=== PATIENT | male | born 1970 | race Caucasian/White ===

== ENCOUNTER → 2020-05-21 12:38 | Outpatient (CLI) | payer BC, SELFPAY | PROVIDERS: PCP Family Medicine; Visit Provider Family Medicine | DX: Z20.828 Contact with and (suspected) exposure to other viral communicable diseases (principal); U07.1 COVID-19 | CPT/HCPCS: U0003 ==

== ENCOUNTER 2020-05-25 14:41 | Inpatient (IN) | payer BC, SELFPAY ==
[2020-05-25] VITALS (11 sets, daily range): BP systolic 118–146; BP diastolic 79–89; PULSE 76–90; RESP 18–25; TEMP 36.8–37.1; O2SAT 92–98; BMI 24.4; BMI 27.1
--- NOTE | 2020-05-25 14:46 | ECG_ITS ---
APPROVED REPORT Exam: Resting ECG HR:75 bpm ECG Measurements Heart Rate 75 AXES TN 160 P 30 QRSd 90 QRS 72 QT 400 T 58 QTc 446 Conclusion Normal sinus rhythm RSR' or QR pattern in V1 suggests right ventricular conduction delay Septal infarct, age undetermined Abnormal ECG Electronically signed by : Foster Garcia, 05/26/2020 06:56:43
--- NOTE | 2020-05-25 14:54 | XR_ITS ---
PROCEDURE: XR CHEST PORTABLE CLINICAL HISTORY: soa COMPARISON: No exams were available for comparison FINDINGS: The cardiomediastinal silhouette and pulmonary vascularity are within normal limits. Consolidation is present in both lower lobes left greater than right consistent with bilateral lower lobe pneumonia. Upper lobes are clear. No obvious effusion. No acute bony abnormalities. IMPRESSION: Bilateral lower lobe pneumonia Dictated by: Ajay Loaiza MD 05/25/2020 15:32 Ajay Loaiza MD in [place] 05/25/2020 15:32
[2020-05-25 15:09] LABS: Basophils % 0.5 % (0.1-2.0); Eosinophils % 0.5 % (0.1-12.0); Hematocrit 44.8 % (42.0-52.0); Hemoglobin 14.6 g/dL (14.1-18.0); Lymphocytes # 1.2 K/mm3 (0.7-4.5); Lymphocytes % 22.9 % (10-50); Mean Corpuscular HGB Conc 32.6 g/dL (31.8-35.4); Mean Corpuscular Hemoglobin 27.5 pg (27.0-31.2); Mean Corpuscular Volume 84.4 fl (80-94); Mean Platelet Volume 8.6 fl (7.4-10.4); Monocytes # 0.2 K/mm3 (0.1-1.0); Monocytes % 4.6 % (1.7-9.3); Neutrophils # 3.8 K/mm3 (1.8-7.8); Neutrophils % 71.7 % (37.0-80.0); Platelet Count 197 K/mm3 (142-424); Red Blood Count 5.31 M/mm3 (4.60-6.20); Red Cell Distribution Width 13.4 % (11.5-17.5); White Blood Count 5.3 K/mm3 (4.8-10.8)
--- NOTE | 2020-05-25 15:09 | HMH.EDGENADL ---
ED Disposition Clinical Impression: Pneumonia due to COVID-19 virus Disposition: Admitted as Observation Condition on Discharge: Serious Referrals: Lenore Carlson APRN [Primary Care Provider] - - Critical Care Critical Care Time: No Attestation: On 05/25/20, the high probability of a clinically significant, sudden or life threatening deterioration of the following system(s) required my full and direct attention, intervention and personal management. The time I documented below is in addition to time spent performing reported procedures but includes the following listed in this critical care notation. Medical Decision Making - Singh Inquiry Pt receiving controlled substance: No Vital Signs: 05/25/20 14:42 05/25/20 15:00 Temperature 98.2 F 98.2 F Temperature Source Oral Oral Pulse Rate [Left Radial] 87 77 Respiratory Rate 20 22 Blood Pressure [Right Arm] 123/87 123/80 Blood Pressure Mean [Right Arm] 99 94 Blood Pressure Source [Right Arm] Automatic Cuff Automatic Cuff Blood Pressure Position [Right Arm] Sitting Sitting 02 Sat by Pulse Oximetry 94 L 95 Oxygen Delivery Method Room Air Room Air - Lab Data Lab Results 05/25/20 14:50: WBC 5.3, RBC 5.31, Hgb 14.6, Hct 44.8, MCV 84.4, MCH 27.5, MCHC 32.6, RDW 13.4, Plt Count 197, MPV 8.6, Neut % (Auto) 71.7, Lymph % (Auto) 22.9, [place] % (Auto) 4.6, Eos % (Auto) 0.5, Baso % (Auto) 0.5, Neut # (Auto) 3.8, Lymph # (Auto) 1.2, [place] # (Auto) 0.2, Eos # (Auto) 0.0, Baso # (Auto) 0.0 05/25/20 14:50: Sodium 138, Potassium 4.3, Chloride 101, Carbon Dioxide 27, Anion Gap 14.3, BUN 13, Creatinine 0.90, Estimated Creat Clear 113, Estimated GFR 89, Est GFR ( Amer) 108, Glucose 127 H, Calcium 8.8 05/25/20 14:50: Lactate 1.2 05/25/20 14:50: Troponin I < 0.01 05/25/20 14:50: Total Bilirubin 0.6, Direct Bilirubin 0.2, Conjugated Bilirubin 0.0, Indirect Bilirubin 0.4, Unconjugated Bilirubin 0.4, AST 74 H, ALT 80 H, Alkaline Phosphatase 118, C-Reactive Protein 72.1 H, Total Protein 8.0, Albumin 4.6 05/25/20 14:50: ESR 75 H Result diagrams: 05/25/20 14:50 05/25/20 14:50 Orders (Tests/Meds): ED MEDICATIONS Generic Name Dose Route Start Last Admin Trade Name Freq PRN Reason Stop Dose Admin Levofloxacin/Dextrose 750 mg in 150 mls @ 100 mls/hr 05/25/20 15:45 05/25/20 15:52 Levofloxacin 750mg/150ml Premix IV 06/08/20 15:44 100 mls/hr Q24H PRABHAKAR Administration Protocol Sodium Chloride 3 ml 05/25/20 15:21 Sodium Chloride 3% 15ml Neb IH 06/24/20 15:20 ONCE PRN INDUCE SPUTUM COLLECTION ORDERS Category Date Time Status Covid-19 IgG/IgM ([facility]) Stat Lab 05/25/20 14:50 Received Covid-19 Nasal PCR ([facility]) Routine Lab 05/25/20 15:41 Ordered Troponin I Q3H Lab 05/25/20 18:15 Ordered Troponin I Q3H Lab 05/25/20 21:15 Ordered Blood Culture Stat Micro 05/25/20 14:55 Received Sputum Culture & Gram Stain Stat Micro 05/25/20 15:21 Ordered - Radiology Data #1 Image(s): Chest Image Reviewed: Yes I reviewed the patient's radiology image Bilateral infiltrates lower lobes - ECG Data Tracing #1 EKG interpreted by Prince Franco MD: Rhythm: sinus Rate: 75 [place]: normal Ectopy: none Conduction: Incomplete right bundle branch block ST Segment Changes: none T Wave Changes: none Q Waves: Septal No evidence of acute ischemia or injury - Physician Consults Physician Consulted: Nasim Time: 16:00 Reason -: Admission Comment/Response: Agrees to admit the patient to the hospital. We discussed the patient's clinical information, including history, exam, laboratory and radiology results and ED course. Per hospital procedure, I will write temporary bridge inpatient orders on the patient. Specific orders requested by the admitting physician: Admit to Dr. Johnson General Adult HPI - General Chief complaint: Shortness of Breath/Dyspnea Stated complaint: SOA Time Seen by Provider: 05/25/20 15:34 Mode of Arrival: Ambulatory L
[2020-05-25 15:10] LABS: Chloride 101 mmol/L (98-107); Sodium 138 mmol/L (136-145)
[2020-05-25 15:11] LABS: Potassium 4.3 mmoL/L (3.5-5.1)
[2020-05-25 15:13] LABS: Blood Urea Nitrogen 13 mg/dl (9-20); Creatinine Clearance Estimated 113 mL/min (50-200); Estimated Glomerular Filt Rate 89 ml/min (>60); GFR (African American) 108 ML/MIN (>60); Lactic Acid 1.2 mmol/L (0.7-2.1)
[2020-05-25 15:14] LABS: Anion Gap 14.3 mEq/L (5-15); Calcium 8.8 mg/dl (8.4-10.2); Carbon Dioxide 27 mmol/L (22.0-30.0); Glucose 127 mg/dl (74-100)
[2020-05-25 15:50] LABS: Bilirubin,Unconjugated 0.4 mg/dL (0.0-1.1)
[2020-05-25 15:51] LABS: Alanine Aminotransferase 80 U/L (12-78); Albumin Level 4.6 g/dl (3.5-5.0); Alkaline Phosphatase 118 U/L (38-126); Aspartate Amino Transferase 74 U/L (17-59); Bilirubin,Direct 0.2 mg/dl (0.0-0.4); Bilirubin,Indirect 0.4 mg/dL (0.0-0.9); Bilirubin,Total 0.6 mg/dl (0.2-1.3)
[2020-05-25 15:56] LABS: C-Reactive Protein 72.1 mg/L (0-4)
[2020-05-25 16:05] LABS: Erythrocyte Sedimentation Rate 75 mm/hr (0-15)
[2020-05-25 16:06] LABS: Troponin I < 0.01 ng/ml (0.00-0.034)
--- NOTE | 2020-05-25 16:13 | PC.NURSE ---
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
--- NOTE | 2020-05-25 16:13 | PC.NURSE ---
Dr Rouse called and said he will see the patient tonight, but to admit him under [place] 1600
[2020-05-25 16:14] LABS: Coronavirus 19 IgG Antibody Negative (Negative); Coronavirus 19 IgM Antibody Negative (Negative)
--- NOTE | 2020-05-25 17:02 | PC.NURSE ---
LITA Campos at beside taking patient to the floor.
[2020-05-25 17:35] LABS: POC Glucose,Bedside 129 (70-110)
--- NOTE | 2020-05-25 18:12 | HMH.HP ---
*Admission Date: 05/25/20 *Chief complaint: SOA, COVID 19 positive *History of present illness: The patient is admitted with COVID 19 positivity and increasing shortness of breath, worse with exertion. Cough is minimally productive. The following is from [facility] ER narrative: The patient has COVID-19 and is complaining of shortness of breath. 1 week ago he says that he developed a chill and in retrospect he thinks that may have been his first symptom. The next day he was fine, and then on Thursday 5 days ago he began having body aches, severe headache, fevers, cough. He does not have loss of smell or taste. He was seen here 4 days ago and had a Covid test (nasal PCR) which has since returned as positive. The past 2 days he has developed shortness of breath with exertion. He denies shortness of breath at rest. His shortness of breath with exertion is worsening. He has not run a fever for about 4 days. He is taking [id number] medications without improvement. His has also tested positive for Covid. [facility] History Medical History: Reports:: Diabetes Mellitus Type 2 Denies:: Cancer, Diabetes Mellitus Type 1 *Have you ever received a pneumonia vaccine?: No *Have you received a flu vaccine this season?: No Other Medical History: Reports: Thyroid Disease Other Surgeries: Yes: Other (Rotator cuff repair right shoulder 2000) Amputation: No Fractures: No - *Social History Smoking Status: Never smoker Alcohol Intake: never Substance Use Type: denies use *Occupational Status:: employed Housing: house Household Members: spouse *Travel in the last 8 weeks: None Family Hx:: Cancer (Father), Other (3 sons 2 daughters) Review of Systems - Constitutional Reports fatigue, Reports fever(s), Reports lack of energy - Eyes Denies change in vision - ENT Denies hoarseness - *Cardiovascular Reports shortness of breath, Denies foot swelling - *Respiratory Reports chest congestion, Reports cough, Reports shortness of breath with activity, Denies excessive phlegm production, Denies coughing up blood - *Gastrointestinal Reports change in stools, Denies abdominal pain - *Genitourinary Denies difficulty urinating - *Neurologic Denies headache(s) Meds Home Medications Medication Instructions Recorded Confirmed Type Levothyroxine Sodium 150 mcg PO DAILY 02/12/18 05/25/20 History [Levothyroxine 150mcg (0.15mg) Tab] Loratadine [Allerclear] 10 mg PO DAILY 02/12/18 05/25/20 History Vilazodone HCl [Viibryd] 40 mg PO DAILY 02/12/18 05/25/20 History hydrOXYzine pamoate [Hydroxyzine 50 mg PO HS PRN 02/12/18 05/25/20 History Pamoate] metformin 500 mg tablet 500 mg PO BID 06/12/19 05/25/20 History Allergies Allergy/AdvReac Type Severity Reaction Status Date / Time No Known Allergies Allergy Verified 06/12/19 16:02 Exam Vital signs and Labs for Last 24 Hours: Temp Pulse Resp BP Pulse Ox 98.2 F 77 22 146/89 H 95 05/25/20 17:21 05/25/20 17:21 05/25/20 17:21 05/25/20 17:21 05/25/20 17:21 Laboratory Results - last 24 hr 05/25/20 14:50: WBC 5.3, RBC 5.31, Hgb 14.6, Hct 44.8, MCV 84.4, MCH 27.5, MCHC 32.6, RDW 13.4, Plt Count 197, MPV 8.6, Neut % (Auto) 71.7, Lymph % (Auto) 22.9, [place] % (Auto) 4.6, Eos % (Auto) 0.5, Baso % (Auto) 0.5, Neut # (Auto) 3.8, Lymph # (Auto) 1.2, [place] # (Auto) 0.2, Eos # (Auto) 0.0, Baso # (Auto) 0.0 05/25/20 14:50: Sodium 138, Potassium 4.3, Chloride 101, Carbon Dioxide 27, Anion Gap 14.3, BUN 13, Creatinine 0.90, Estimated Creat Clear 113, Estimated GFR 89, Est GFR ( Amer) 108, Glucose 127 H, Calcium 8.8 05/25/20 14:50: Lactate 1.2 05/25/20 14:50: Troponin I < 0.01 05/25/20 14:50: Total Bilirubin 0.6, Direct Bilirubin 0.2, Conjugated Bilirubin 0.0, Indirect Bilirubin 0.4, Unconjugated Bilirubin 0.4, AST 74 H, ALT 80 H, Alkaline Phosphatase 118, C-Reactive Protein 72.1 H, Total Protein 8.0, Albumin 4.6 05/25/20 14:50: ESR 75 H 05/25/20 14:50: SARS-CoV-2 IgG Ab (Rapid) Nega
[2020-05-25 20:11] LABS: POC Glucose,Bedside 173 (70-110)
--- NOTE | 2020-05-26 03:52 | PC.NURSE ---
Pt A&OX4 lungs diminished. O2 sat 94 on RA. pt voids per urinal. pt denies at pain. pt has rested quietly throughout shift. call light within reach.
[2020-05-26 04:00] VITALS: BP 138/85; PULSE 73; RESP 20; TEMP 36.9; O2SAT 95
[2020-05-26 05:33] LABS: POC Glucose,Bedside 175 (70-110)
[2020-05-26 05:43] VITALS: BMI 26.8
[2020-05-26 08:00] VITALS: BP 126/77; PULSE 82; RESP 20; TEMP 36.7; O2SAT 94; O2SAT 95
--- NOTE | 2020-05-26 10:26 | HMH.ACPN2 ---
Internal Medicine - PN: Subj *Date: 05/26/20 *Time: 10:50 Interval history: Patient states he feels a little better this morning, headache has improved but he still has a lot of cough. He has had some nausea. Exam Vital signs and Labs for Last 24 Hours: Temp Pulse Resp BP Pulse Ox 98.1 F 82 20 126/77 95 05/26/20 08:00 05/26/20 08:00 05/26/20 08:00 05/26/20 08:00 05/26/20 08:00 Laboratory Results - last 24 hr 05/25/20 14:50: WBC 5.3, RBC 5.31, Hgb 14.6, Hct 44.8, MCV 84.4, MCH 27.5, MCHC 32.6, RDW 13.4, Plt Count 197, MPV 8.6, Neut % (Auto) 71.7, Lymph % (Auto) 22.9, [place] % (Auto) 4.6, Eos % (Auto) 0.5, Baso % (Auto) 0.5, Neut # (Auto) 3.8, Lymph # (Auto) 1.2, [place] # (Auto) 0.2, Eos # (Auto) 0.0, Baso # (Auto) 0.0 05/25/20 14:50: Sodium 138, Potassium 4.3, Chloride 101, Carbon Dioxide 27, Anion Gap 14.3, BUN 13, Creatinine 0.90, Estimated Creat Clear 113, Estimated GFR 89, Est GFR ( Amer) 108, Glucose 127 H, Calcium 8.8 05/25/20 14:50: Lactate 1.2 05/25/20 14:50: Troponin I < 0.01 05/25/20 14:50: Total Bilirubin 0.6, Direct Bilirubin 0.2, Conjugated Bilirubin 0.0, Indirect Bilirubin 0.4, Unconjugated Bilirubin 0.4, AST 74 H, ALT 80 H, Alkaline Phosphatase 118, C-Reactive Protein 72.1 H, Total Protein 8.0, Albumin 4.6 05/25/20 14:50: ESR 75 H 05/25/20 14:50: SARS-CoV-2 IgG Ab (Rapid) Negative, SARS-CoV-2 IgM Ab (Rapid) Negative 05/25/20 17:27: POC Glucose 129 H 05/25/20 19:41: POC Glucose 173 H 05/26/20 05:21: POC Glucose 175 H Vital Signs - 24 hr 05/25/20 14:42 05/25/20 15:00 05/25/20 15:30 Temperature 98.2 F 98.2 F Pulse Rate Pulse Rate [Left Radial] 87 77 90 Respiratory Rate 20 22 24 Blood Pressure Blood Pressure [Right Arm] 123/87 123/80 128/81 02 Sat by Pulse Oximetry 94 L 95 98 05/25/20 16:20 05/25/20 16:30 05/25/20 17:00 Temperature Pulse Rate Pulse Rate [Left Radial] 78 82 80 Respiratory Rate 19 25 H Blood Pressure Blood Pressure [Right Arm] 129/83 124/79 131/84 02 Sat by Pulse Oximetry 97 97 97 05/25/20 17:06 05/25/20 17:21 05/25/20 18:15 Temperature 98.2 F 98.2 F Pulse Rate 80 Pulse Rate [Left Radial] 77 82 Respiratory Rate 18 22 Blood Pressure 131/84 Blood Pressure [Right Arm] 146/89 H 02 Sat by Pulse Oximetry 95 94 L 05/25/20 20:00 05/25/20 23:41 05/26/20 04:00 Temperature 98.7 F 98.5 F 98.4 F Pulse Rate Pulse Rate [Left Radial] 85 76 73 Respiratory Rate 20 20 20 Blood Pressure Blood Pressure [Right Arm] 118/79 128/84 138/85 02 Sat by Pulse Oximetry 95 95 95 05/26/20 08:00 Temperature 98.1 F Pulse Rate Pulse Rate [Left Radial] 82 Respiratory Rate 20 Blood Pressure Blood Pressure [Right Arm] 126/77 02 Sat by Pulse Oximetry 95 I & O for Last 24 hours: Intake & Output 05/23/20 05/24/20 05/25/20 05/26/20 23:59 23:59 23:59 23:59 Intake Total 420 / 420 1146 / 1146 Output Total 1500 / 1500 950 / 950 Balance -1080 / -1080 196 / 196 Weight 200 lb 198 lb Microbiology Reports for the Last 24 Hours: Microbiology 05/25/20 16:45 Nasopharyngeal Coronavirus COVID-19 PCR - Final - Constitutional no acute distress Comments: coughing - *Routine HEENT Exam Head: Present: normocephalic Eye: Present: EOMI ENT: Present: mucous membranes moist - *Routine Neck Exam Present: supple. Absent: lymphadenopathy - *Routine Respiratory Exam Comments: Good air movement, rare bibasilar crackles noted - *Routine Cardiovascular Exam Present: RRR - *Routine Abdominal Exam Present: soft, normoactive bowel sounds. Absent: tenderness - *Routine Extremities Exam Absent: cyanosis, clubbing, edema - *Routine Skin Exam Present: warm. Absent: rash - *Routine Neurological Exam Present: alert, oriented X3 Assessment and Plan (1) Pneumonia due to COVID-19 virus Status: Acute Category: Medical Code(s): U07.1 - COVID-19; J12.89 - Other viral pneumonia (2) Type 2 diabetes mellitus Status: Acu
--- NOTE | 2020-05-26 11:31 | HMH.PHAVTE ---
[facility] Pharmacy VTE Monitoring - Patient Demographics Admission date: 05/26/20 Report Date: 05/26/20 Time: 11:31 Allergies/Adverse Reactions: Patient Allergies No Known Allergies Allergy (Verified 06/12/19 16:02) Height: 1.83 m Weight: 89.811 kg Patient Problems: Current Active Problems Pneumonia due to COVID-19 virus (Acute) Type 2 diabetes mellitus (Acute) Hypothyroidism (acquired) (Acute) - VTE Risk Labs: VTE Related Lab Results Hgb 14.6 g/dL (14.1-18.0) 05/25/20 14:50 Hct 44.8 % (42.0-52.0) 05/25/20 14:50 Plt Count 197 K/mm3 (142-424) 05/25/20 14:50 BUN 13 mg/dl (9-20) 05/25/20 14:50 Creatinine 0.90 mg/dl (0.66-1.25) 05/25/20 14:50 Estimated Creat Clear 113 mL/min (50-200) 05/25/20 14:50 VTE Score: 3 VTE Risk Level: Low Risk - Prophylaxis Types of VTE Prophylaxis: TEDS Knee High (KIMBERLI HOSE ORDERED) Location of Applied Device: Not Applicable
[2020-05-26 11:39] LABS: POC Glucose,Bedside 137 (70-110)
[2020-05-26 16:00] VITALS: BP 137/86; PULSE 79; RESP 20; TEMP 36.8; O2SAT 94
--- NOTE | 2020-05-26 18:14 | PC.NURSE ---
Addendum entered by Amada Ash RN 05/26/20 18:33: Patients anxiety medication is secured in patients bin in med room pending packaging by pharmacy. Original Note: Patient is resting in bed, has been in bed all day, with the exception of ambulating to his toilet. Patient is alertx4. C/O cough and shortness of breath on exertion. Pupils are equal, sqe are strong and equal. Patient has had a diminished appetite today, blood glucose levels have been 137 and 168, 2 units of insulin required for 168, patient tolerated well. Metformin for patient was restarted today, patient has tolerated that as well. Patient has had good urine output. Skin is intact with no issues. Patient remains concerned about his who is at home with his three children who also has covid and is not feeling well. Patient has remained on and off of 2 liters of oxygen throughout the day, will put the oxygen on and off independently when his oxygen saturation is less than 92. On that note, the patients oxygen only dropped below 92 when he got up to his bedside commonde today. On ambulation he exhibited a dry hacking cough and difficulty catching his breath. Patient was given cough medication today per mar which he tolerated well and states helps with cough. Patient's belongings brought to him from home, anxiety medicine included, however, pharmacy will have to dose in the morning. Patient states he cannot take this medication in the evening. No issues or concerns with patient.
[2020-05-26 19:38] VITALS: BP 128/79; PULSE 88; RESP 20; TEMP 36.7; O2SAT 95
[2020-05-26 20:00] VITALS: O2SAT 95
[2020-05-26 23:39] VITALS: BP 127/80; PULSE 78; RESP 20; TEMP 36.7; O2SAT 95
[2020-05-27 04:00] VITALS: BP 137/87; PULSE 75; RESP 20; TEMP 36.6; O2SAT 94
--- NOTE | 2020-05-27 05:11 | PC.NURSE ---
Pt A&OX4 lungs diminished throughout. pt remains on RA O2 in low90s. pt c/o SOA on exertion but recovers quickly. pt ambulated to [facility] independently. pt received PRN cough syrup per SEP. pt has rested quietly this shift
[2020-05-27 05:56] VITALS: BMI 26.6
[2020-05-27 06:29] LABS: Alanine Aminotransferase 61 U/L (12-78); Albumin Level 4.1 g/dl (3.5-5.0); Albumin/Globulin Ratio 1.3 (1.1-1.8); Alkaline Phosphatase 122 U/L (38-126); Anion Gap 16.3 mEq/L (5-15); Aspartate Amino Transferase 54 U/L (17-59); Bilirubin,Total 0.4 mg/dl (0.2-1.3); Blood Urea Nitrogen 13 mg/dl (9-20); Calcium 8.8 mg/dl (8.4-10.2); Carbon Dioxide 24 mmol/L (22.0-30.0); Chloride 104 mmol/L (98-107); Creatinine Clearance Estimated 124 mL/min (50-200); Estimated Glomerular Filt Rate 89 ml/min (>60); GFR (African American) 108 ML/MIN (>60); Globulin 3.1 g/dL (1.3-3.2); Glucose 139 mg/dl (74-100); Potassium 4.3 mmoL/L (3.5-5.1); Sodium 140 mmol/L (136-145); Total Protein,Serum 7.2 g/dl (6.3-8.2)
[2020-05-27 08:00] VITALS: BP 146/87; PULSE 77; RESP 20; TEMP 36.6; O2SAT 95; O2SAT 96
--- NOTE | 2020-05-27 09:45 | HMH.ACPN2 ---
Internal Medicine - PN: Subj *Date: 05/27/20 *Time: 10:11 Interval history: Patient had a fairly sever coughing episode last night. O2 sat dropped briefly and he needed supplemental oxygen for a few minutes. He still has SOB with any exertion. Exam Vital signs and Labs for Last 24 Hours: Temp Pulse Resp BP Pulse Ox 97.8 F 77 20 146/87 H 96 05/27/20 08:00 05/27/20 08:00 05/27/20 08:00 05/27/20 08:00 05/27/20 08:00 Laboratory Results - last 24 hr 05/26/20 11:03: POC Glucose 137 H 05/27/20 06:01: Sodium 140, Potassium 4.3, Chloride 104, Carbon Dioxide 24, Anion Gap 16.3 H, BUN 13, Creatinine 0.90, Estimated Creat Clear 124, Estimated GFR 89, Est GFR ( Amer) 108, Glucose 139 H, Calcium 8.8, Total Bilirubin 0.4, AST 54 D, ALT 61, Alkaline Phosphatase 122, Total Protein 7.2, Albumin 4.1, Globulin 3.1, Albumin/Globulin Ratio 1.3 Vital Signs - 24 hr 05/26/20 16:00 05/26/20 19:38 05/26/20 20:00 Temperature 98.3 F 98.0 F Pulse Rate [Left Radial] 79 88 Respiratory Rate 20 20 Blood Pressure [Right Arm] 137/86 128/79 02 Sat by Pulse Oximetry 94 L 95 95 05/26/20 23:39 05/27/20 04:00 05/27/20 08:00 Temperature 98.0 F 97.9 F 97.8 F Pulse Rate [Left Radial] 78 75 77 Respiratory Rate 20 20 20 Blood Pressure [Right Arm] 127/80 137/87 146/87 H 02 Sat by Pulse Oximetry 95 94 L 96 I & O for Last 24 hours: Intake & Output 05/24/20 05/25/20 05/26/20 05/27/20 23:59 23:59 23:59 23:59 Intake Total 420 / 420 1866 / 1866 191 / 191 Output Total 1500 / 1500 4875 / 4875 550 / 550 Balance -1080 / -1080 -3009 / -3009 1365 / 1365 Weight 200 lb 198 lb 197 lb - Constitutional no acute distress - *Routine HEENT Exam Head: Present: normocephalic Eye: Present: EOMI ENT: Present: mucous membranes moist - *Routine Neck Exam Present: supple. Absent: lymphadenopathy - *Routine Respiratory Exam Comments: Good air movement, few bibasilar crackles, no wheezes - *Routine Cardiovascular Exam Present: RRR - *Routine Abdominal Exam Present: soft, normoactive bowel sounds. Absent: tenderness - *Routine Extremities Exam Absent: cyanosis, clubbing, edema - *Routine Skin Exam Present: warm. Absent: rash - *Routine Neurological Exam Present: alert, oriented X3 Assessment and Plan (1) Pneumonia due to COVID-19 virus Status: Acute Category: Medical Code(s): U07.1 - COVID-19; J12.89 - Other viral pneumonia (2) Type 2 diabetes mellitus Status: Acute Category: Medical Code(s): E11.9 - Type 2 diabetes mellitus without complications (3) Hypothyroidism (acquired) Status: Acute Category: Medical Code(s): E03.9 - Hypothyroidism, unspecified - Assessment and plan all Dx Assessment and Plan for all problems:: LFT's have improved, continue current treatment, repeat CXR later today.
--- NOTE | 2020-05-27 10:14 | XR_ITS ---
PROCEDURE: XR CHEST PORTABLE CLINICAL HISTORY: pneumonia, Covid 19 COMPARISON: Portable upright chest 05/25/2020 FINDINGS: This is a poor inspiratory effort. This results in crowding of vascular markings however I feel that there has been some interval improvement in the bilateral lower lobe pneumonic infiltrates since the previous exam 05/25/2020. The upper lung levy are remain essentially clear except for small opacity right suprahilar region which could represent minimal pneumonia versus atelectasis. Cardiac size is normal considering the poor inspiration. No pleural fluid. IMPRESSION: Interval partial clearing of bilateral lower lobe pneumonic infiltrates Dictated by: Dr. Steven Sheth MD 05/27/2020 10:51 Dr. Steven Sheth MD in [place] 05/27/2020 10:51
[2020-05-27 12:00] VITALS: BP 124/80; PULSE 78; RESP 20; TEMP 36.5; O2SAT 95
[2020-05-27 15:51] LABS: POC Glucose,Bedside 176 (70-110)
[2020-05-27 15:51] LABS: POC Glucose,Bedside 118 (70-110)
[2020-05-27 15:51] LABS: POC Glucose,Bedside 190 (70-110)
[2020-05-27 15:51] LABS: POC Glucose,Bedside 168 (70-110)
[2020-05-27 15:51] LABS: POC Glucose,Bedside 133 (70-110)
[2020-05-27 15:59] VITALS: BP 125/77; PULSE 77; RESP 20; TEMP 36.6; O2SAT 95
--- NOTE | 2020-05-27 17:33 | PC.NURSE ---
Patient is resting in bed. Neurologically patient is in better spirits than yesterday. Alert x 4. Cardiovascular lux patient has been hemodynamically stable. Pulmonary-patient has been on room air throughout the day and did not desat with ambulation like yesterday, does however grow very tired with ambulation. Dry cough still noted. PRN cough medication given per mar. Patients lung sounds continue to be diminished. GI-patient had a small formed bm, diarrhea seems to have resolved. Appetite has improved throughout the day. Patients blood glucose levels were 118 at 1100 and 176 at 1630. 2units given per mar. No nausea or vomiting. - excellent urine output today. Urine is pale yellow. Skin is intact, no issues. Room was cleaned by SRNA today. No issues or concerns voiced by patient. Will continue to monitor patient.
[2020-05-27 20:00] VITALS: BP 124/81; PULSE 76; RESP 19; TEMP 36.7; O2SAT 95
[2020-05-27 20:12] LABS: POC Glucose,Bedside 136 (70-110)
[2020-05-28] VITALS: BP 118/81; PULSE 69; RESP 19; TEMP 36.4; O2SAT 94
[2020-05-28 04:00] VITALS: BP 133/84; PULSE 65; RESP 19; TEMP 36.6; O2SAT 94
--- NOTE | 2020-05-28 04:27 | PC.NURSE ---
pt. has not c/o n/v/d, soa or dizziness this shift. C/o back pain, tx with tylenol and requested cough syrup for sleep; effectiveness reported.
[2020-05-28 05:43] LABS: Basophils % 0.4 % (0.1-2.0); Eosinophils % 0.1 % (0.1-12.0); Hematocrit 41.3 % (42.0-52.0); Hemoglobin 14.3 g/dL (14.1-18.0); Lymphocytes # 1.7 K/mm3 (0.7-4.5); Lymphocytes % 27.1 % (10-50); Mean Corpuscular HGB Conc 34.6 g/dL (31.8-35.4); Mean Corpuscular Hemoglobin 27.9 pg (27.0-31.2); Mean Corpuscular Volume 80.7 fl (80-94); Mean Platelet Volume 8.7 fl (7.4-10.4); Monocytes # 0.5 K/mm3 (0.1-1.0); Monocytes % 7.9 % (1.7-9.3); Neutrophils # 4.1 K/mm3 (1.8-7.8); Neutrophils % 64.5 % (37.0-80.0); Platelet Count 338 K/mm3 (142-424); Red Blood Count 5.12 M/mm3 (4.60-6.20); Red Cell Distribution Width 14.1 % (11.5-17.5); White Blood Count 6.4 K/mm3 (4.8-10.8)
[2020-05-28 05:49] LABS: Chloride 104 mmol/L (98-107); Potassium 4.3 mmoL/L (3.5-5.1); Sodium 137 mmol/L (136-145)
[2020-05-28 05:52] LABS: Alanine Aminotransferase 56 U/L (12-78); Albumin Level 3.9 g/dl (3.5-5.0); Albumin/Globulin Ratio 1.3 (1.1-1.8); Alkaline Phosphatase 94 U/L (38-126); Anion Gap 12.3 mEq/L (5-15); Aspartate Amino Transferase 47 U/L (17-59); Bilirubin,Total 0.5 mg/dl (0.2-1.3); Blood Urea Nitrogen 16 mg/dl (9-20); Carbon Dioxide 25 mmol/L (22.0-30.0); Creatinine Clearance Estimated 112 mL/min (50-200); Estimated Glomerular Filt Rate 79 ml/min (>60); GFR (African American) 96 ML/MIN (>60); Globulin 3.1 g/dL (1.3-3.2)
[2020-05-28 05:53] LABS: Calcium 8.7 mg/dl (8.4-10.2); Glucose 130 mg/dl (74-100)
[2020-05-28 06:00] VITALS: BMI 26.5
[2020-05-28 07:55] VITALS: BP 129/72; PULSE 72; RESP 18; TEMP 36.7; O2SAT 93
[2020-05-28 08:00] VITALS: O2SAT 94
--- NOTE | 2020-05-28 09:05 | HMH.ACPN2 ---
Internal Medicine - PN: Subj *Date: 05/28/20 *Time: 09:27 Interval history: Patient feels better today and is anxious to go home. Exam Vital signs and Labs for Last 24 Hours: Temp Pulse Resp BP Pulse Ox 98.0 F 72 18 129/72 94 L 05/28/20 07:55 05/28/20 07:55 05/28/20 07:55 05/28/20 07:55 05/28/20 08:00 Laboratory Results - last 24 hr 05/26/20 15:28: POC Glucose 168 H 05/26/20 20:04: POC Glucose 190 H 05/27/20 05:58: POC Glucose 133 H 05/27/20 10:46: POC Glucose 118 H 05/27/20 15:27: POC Glucose 176 H 05/27/20 19:58: POC Glucose 136 H 05/28/20 05:00: WBC 6.4, RBC 5.12, Hgb 14.3, Hct 41.3 L, MCV 80.7, MCH 27.9, MCHC 34.6, RDW 14.1, Plt Count 338 D, MPV 8.7, Neut % (Auto) 64.5, Lymph % (Auto) 27.1, [place] % (Auto) 7.9, Eos % (Auto) 0.1, Baso % (Auto) 0.4, Neut # (Auto) 4.1, Lymph # (Auto) 1.7, [place] # (Auto) 0.5, Eos # (Auto) 0.0, Baso # (Auto) 0.0 05/28/20 05:00: Sodium 137, Potassium 4.3, Chloride 104, Carbon Dioxide 25, Anion Gap 12.3, BUN 16, Creatinine 1.00, Estimated Creat Clear 112, Estimated GFR 79, Est GFR ( Amer) 96, Glucose 130 H, Calcium 8.7, Total Bilirubin 0.5, AST 47, ALT 56, Alkaline Phosphatase 94, Total Protein 7.0, Albumin 3.9, Globulin 3.1, Albumin/Globulin Ratio 1.3 Vital Signs - 24 hr 05/27/20 12:00 05/27/20 15:59 05/27/20 20:00 Temperature 97.7 F 97.8 F 98.0 F Pulse Rate [Left Radial] 78 77 76 Respiratory Rate 20 20 19 Blood Pressure [Right Arm] 124/80 125/77 124/81 02 Sat by Pulse Oximetry 95 95 95 05/28/20 00:00 05/28/20 04:00 05/28/20 07:55 Temperature 97.6 F 97.8 F 98.0 F Pulse Rate [Left Radial] 69 65 72 Respiratory Rate 19 19 18 Blood Pressure [Right Arm] 118/81 133/84 129/72 02 Sat by Pulse Oximetry 94 L 94 L 93 L 05/28/20 08:00 Temperature Pulse Rate [Left Radial] Respiratory Rate Blood Pressure [Right Arm] 02 Sat by Pulse Oximetry 94 L I & O for Last 24 hours: Intake & Output 05/25/20 05/26/20 05/27/20 05/28/20 23:59 23:59 23:59 23:59 Intake Total 420 / 420 1866 / 1866 3115 / 3115 120 / 120 Output Total 1500 / 1500 4875 / 4875 3985 / 4285 1500 / 1500 Balance -1080 / -1080 -3009 / -3009 -870 / -1170 -1380 / -1380 Weight 200 lb 198 lb 197 lb 196 lb 1 oz Microbiology Reports for the Last 24 Hours: Microbiology 05/25/20 14:55 Blood Blood Culture - Preliminary NO GROWTH AFTER 48 HOURS 05/25/20 14:55 Blood Blood Culture - Preliminary NO GROWTH AFTER 48 HOURS - Constitutional no acute distress - *Routine HEENT Exam Head: Present: normocephalic Eye: Present: EOMI ENT: Present: mucous membranes moist - *Routine Neck Exam Present: supple. Absent: lymphadenopathy - *Routine Respiratory Exam Present: CTA bilaterally - *Routine Cardiovascular Exam Present: RRR - *Routine Abdominal Exam Present: soft, normoactive bowel sounds. Absent: tenderness - *Routine Extremities Exam Absent: cyanosis, clubbing, edema - *Routine Skin Exam Present: warm. Absent: rash - *Routine Neurological Exam Present: alert, oriented X3 Assessment and Plan (1) Pneumonia due to COVID-19 virus Status: Acute Category: Medical Code(s): U07.1 - COVID-19; J12.89 - Other viral pneumonia (2) Type 2 diabetes mellitus Status: Acute Category: Medical Code(s): E11.9 - Type 2 diabetes mellitus without complications (3) Hypothyroidism (acquired) Status: Acute Category: Medical Code(s): E03.9 - Hypothyroidism, unspecified - Assessment and plan all Dx Assessment and Plan for all problems:: OK for discharge today on Levaquin, Dexamethasone, Zofran and Promethazine DM. Pt to isolate at home.
--- NOTE | 2020-05-28 13:09 | HMH.PULMCON ---
*Admission Date: 05/26/20 *Reason for consult:: COVID-19 pneumonia *History of present illness: Mr. Enamorado is a 50-year-old male with history of diabetes, diagnosed with Covid last Thursday he presented to the emergency room with problems of worsening cough and shortness of breath since to a point where he is feeling shortness of breath with his activities of daily living. Patient along with cough and portable also complains of fatigue fevers chills and muscle aches. He denies any abdominal symptoms. Patient also tested Covid and she predominately is having abdominal symptoms. Ben was called for further management [facility] History Medical History: Reports:: Diabetes Mellitus Type 2 Denies:: Cancer, Diabetes Mellitus Type 1 *Have you ever received a pneumonia vaccine?: No *Have you received a flu vaccine this season?: No Other Medical History: Reports: Thyroid Disease Other Surgeries: Yes: Other (Rotator cuff repair right shoulder 2000) Amputation: No Fractures: No - *Social History Smoking Status: Never smoker Alcohol Intake: never Substance Use Type: denies use *Occupational Status:: employed Housing: house Household Members: spouse *Travel in the last 8 weeks: None Family Hx:: Cancer (Father), Other (3 sons 2 daughters) ROS - Cons Reports body ache(s), Reports chills - Eyes Denies blind spots, Denies blurry vision - ENT Denies abnormal hearing - Card Reports shortness of breath, Reports shortness of breath with activity - Resp Respiratory: Yes chest congestion, Yes cough, Yes dyspnea, Yes dyspnea on exertion, Yes excessive phlegm production, No coughing up blood, No pain on inspiration, No pain with cough, Yes cough with sputum production - GI Gastrointestingal: Reports: system reviewed and no additional complaints, except as docu. Denies: abdominal pain - [place] Musculoskeletal: Reports system reviewed and no additional complaints, except as docu Meds Home Medications Medication Instructions Recorded Confirmed Type Loratadine [Allerclear] 10 mg PO DAILY 02/12/18 05/25/20 History Vilazodone HCl [Viibryd 40mg 40 mg PO DAILY 02/12/18 05/25/20 History Tablet] hydrOXYzine pamoate [Hydroxyzine 50 mg PO HSP PRN 02/12/18 05/26/20 History Pamoate] Atorvastatin Calcium [Lipitor 20mg 20 mg PO HS 05/26/20 05/26/20 History Tab] Levothyroxine Sodium 75 mcg PO DAILY 05/26/20 05/26/20 History [Levothyroxine 75mcg (0.075mg) Tab] Metformin HCl [Metformin HCl ER] 1,500 mg PO DAILY 05/26/20 05/26/20 History Promethazine/Dextromethorphan 5 - 10 ml PO Q6HP PRN #480 ml 05/28/20 Rx [Promethazine-Dm Solution] dexAMETHasone [Dexamethasone] 6 mg PO DAILY #3 tab 05/28/20 Rx levoFLOXacin [Levaquin 500mg 500 mg PO DAILY #7 tab 05/28/20 Rx tab] ondansetron HCL [Zofran 4mg Tab*] 4 mg PO TIDP PRN #20 tab 05/28/20 Rx Allergies Allergy/AdvReac Type Severity Reaction Status Date / Time No Known Allergies Allergy Verified 06/12/19 16:02 Exam - Constitutional Constitutional:: no acute distress, comfortable - HENWA Exam HENMT: normocephalic, atraumatic - Neck Exam Neck:: thyroid normal, no lymphadenopathy - Respiratory Exam Respiratory:: able to speak in complete sentences, no respiratory distress Comments: Left lower lobe crackles heard - Cardiovascular Exam Cardiac:: S1, S2 - GI Exam GI:: soft, no hepatosplenomegaly - Skin Exam Skin: warm, no rash - Neurological Exam Neurological: alert, awake, oriented X3 - Extremities Exam Extremities: no cyanosis, no clubbing, no edema - Psychiatric Exam Psychiatric: normal affect, appearance grossly normal Internal Medicine - CN: Reslt - Labs CBC & Chem 7: 05/28/20 05:00 05/28/20 05:00 Labs: Short CBC 05/28/20 Range/Units 05:00 WBC 6.4 (4.8-10.8) K/mm3 Hgb 14.3 (14.1-18.0) g/dL Hct 41.3 L (42.0-52.0) % Plt Count 338 D (142-424) K/mm3 [facility] 05/28/20 05:00 Sodium 137 Potass
--- NOTE | 2020-05-29 08:42 | HMH.DCSUM ---
General - General Admission date:: 05/25/20 Discharge date: 05/28/20 HPI HPI: The patient was admitted with COVID 19 positivity and increasing shortness of breath, worse with exertion. Cough was minimally productive. The following was from [facility] ER narrative: The patient has COVID-19 and is complaining of shortness of breath. 1 week ago he says that he developed a chill and in retrospect he thinks that may have been his first symptom. The next day he was fine, and then on Thursday 5 days ago he began having body aches, severe headache, fevers, cough. He does not have loss of smell or taste. He was seen here 4 days ago and had a Covid test (nasal PCR) which has since returned as positive. The past 2 days he has developed shortness of breath with exertion. He denies shortness of breath at rest. His shortness of breath with exertion is worsening. He has not run a fever for about 4 days. He is taking xrjm-lhn-yevagbl medications without improvement. His has also tested positive for Covid. Hospital Course Hospital Course: On admission patient was placed on the routine Covid protocol to include ascorbic acid, dexamethasone 6 mg p.o. daily, Lovenox 40 mg daily, Drisdol 50,000 units weekly, Pepcid 20 mg twice daily, Levaquin 750 mg IV daily, remdesivir 100 mg daily and zinc sulfate 220 mg daily. He was started on IV fluids at 100 an hour. He was placed on sliding scale insulin and started back on his home medicines. He felt better daily. Headache improved. He did have a persistent cough with some coughing spasms. He also did experience some nausea. With one coughing episode his O2 sats did drop briefly and he needed supplemental oxygen for a few minutes. He continued with shortness of breath with any exertion. Patient was also seen per Dr. Gallagher with plan to continue with Levaquin for total of 5 days, remdesivir and dexamethasone until discharge, incentive spirometry, and physical activity as tolerated. Follow-up with him in the clinic in 6 to 8 weeks to evaluate any clinical implications. Also to note liver function studies were slightly elevated with an SGOT of 74 and SGPT of 80 on admission. These did return to normal. By 05/28 he was feeling better and was anxious to go home. On this date his lungs sounded clear. White blood cell count was normal. Blood chemistries were normal. He was afebrile. Blood cultures were negative thus far. Thus he was discharged to home. Discharged home in stable and satisfactory condition. To continue with the Levaquin, dexamethasone, Zofran as needed and promethazine DM as needed. He was instructed to isolate at home. He was to Followup with Dr. Johnson 06/13/2020 Objective Vital signs: Temp Pulse Resp BP Pulse Ox 98.0 F 72 18 129/72 94 L 05/28/20 07:55 05/28/20 07:55 05/28/20 07:55 05/28/20 07:55 05/28/20 08:00 Narrative: Exam Vital signs and Labs for Last 24 Hours: Temp Pulse Resp BP Pulse Ox 98.0 F 72 18 129/72 94 L 05/28/20 07:55 05/28/20 07:55 05/28/20 07:55 05/28/20 07:55 05/28/20 08:00 Laboratory Results - last 24 hr 05/26/20 15:28: POC Glucose 168 H 05/26/20 20:04: POC Glucose 190 H 05/27/20 05:58: POC Glucose 133 H 05/27/20 10:46: POC Glucose 118 H 05/27/20 15:27: POC Glucose 176 H 05/27/20 19:58: POC Glucose 136 H 05/28/20 05:00: WBC 6.4, RBC 5.12, Hgb 14.3, Hct 41.3 L, MCV 80.7, MCH 27.9, MCHC 34.6, RDW 14.1, Plt Count 338 D, MPV 8.7, Neut % (Auto) 64.5, Lymph % (Auto) 27.1, Turner % (Auto) 7.9, Eos % (Auto) 0.1, Baso % (Auto) 0.4, Neut # (Auto) 4.1, Lymph # (Auto) 1.7, Turner # (Auto) 0.5, Eos # (Auto) 0.0, Baso # (Auto) 0.0 05/28/20 05:00: Sodium 137, Potassium 4.3, Chloride 104, Carbon Dioxide 25, Anion Gap 12.3, BUN 16, Creatinine 1.00, Estimated Creat Clear 112, Estimated GFR 79, Est GFR ( Amer) 96, Glucose 130 H, Calcium 8.7, Total Bilirubin 0.5, AST 47, ALT 56, Alkaline Phosphatase 94, Total Protein 7.0, Al
== END 2020-05-28 11:18 | disposition home or self-care (01) | DRG 177 ==
LOC: ER 16:12 → ICU 16:19
PROVIDERS: Admitting Provider Family Medicine; Emergency Provider Emergency Medicine; PCP Nurse Practitioner; Visit Provider Family Medicine
DX: U07.1 COVID-19 (principal); J12.89 Other viral pneumonia; Z79.84 Long term (current) use of oral hypoglycemic drugs; Z79.899 Other long term (current) drug therapy; E03.9 Hypothyroidism, unspecified; E11.9 Type 2 diabetes mellitus without complications
CPT/HCPCS: 71045; 80048; 80053; 80076; 82962; 83605; 84484; 85025; 85651; 86140; 86328; 87040; 93005; 96365; 99284; J1956; U0003

== ENCOUNTER → 2020-07-04 15:38 | Outpatient (CLI) | payer BC, SELFPAY ==
--- NOTE | 2020-07-04 15:50 | XR_ITS ---
PROCEDURE: XR CHEST 2V CLINICAL HISTORY: ELEVATED DIAPHRAGM COMPARISON: CR XR CHEST PORTABLE from 05/25/2020 CR XR CHEST PORTABLE from 05/27/2020 FINDINGS: The cardiomediastinal silhouette and pulmonary vascularity are within normal limits. The lungs are clear without infiltrates, suspicious nodules, or pleural effusions. Faint density is noted in the right lobe and may represent thickening major fissure. Previously noted pneumonia in the right lower lung zone has cleared. IMPRESSION: No acute finding. Minimal opacity in the right upper lobe which may represent thickening of the fissure otherwise negative. Dictated by: Ajay Loaiza MD 07/04/2020 16:06 Ajay Loaiza MD in [place] 07/04/2020 16:06
== END ==
PROVIDERS: PCP Family Medicine; Visit Provider Family Medicine
DX: J98.6 Disorders of diaphragm (principal); Z86.19 Personal history of other infectious and parasitic diseases
CPT/HCPCS: 71046

== ENCOUNTER → 2020-08-22 13:56 | Outpatient (CLI) | payer BC, SELFPAY ==
[2020-08-22 14:30] VITALS: PULSE 87; PULSE 90
== END ==
PROVIDERS: PCP Family Medicine; Visit Provider Internal Medicine Pulmonary Disease
DX: R06.09 Other forms of dyspnea (principal)
CPT/HCPCS: 94060; 94640; 94726; 94729

== ENCOUNTER 2021-02-12 11:20 | Emergency (ER) | payer BC, SELFPAY ==
[2021-02-12 11:21] VITALS: BP 135/93; PULSE 85; RESP 16; TEMP 37; O2SAT 96; BMI 26.4
--- NOTE | 2021-02-12 11:44 | HMH.EDUTC ---
[facility] Disposition Clinical Impression: Encounter for laboratory testing for COVID-19 virus Disposition: Home, Self-Care Condition on Discharge: Good Instructions: DI for COVID-19 (Suspected or Confirmed ), COVID-19: Testing and Tracing, Preventing the Spread of Coronavirus Discharge Instructions Additional Instructions: *Monitor Temp, Over the counter Motrin or Tylenol as directed/as needed Tylenol every 4 hours and Motrin every 6 hours (as long as your family doctor has told you that you can take it) for fever or pain. and straight to ER if unable to lower temp less than 101.0 after medication given *Warm salt water gargles may help to soothe the throat *Throat Lozenges *Warm fluids like tea with honey may help to soothe the throat *Sleep elevated *Humidifier/Vaporizer Follow up IMMEDIATELY for new or worsening symptoms or no Noticeable improvement over the next 48-72 hours. 911 for difficulty breathing or swallowing You were tested for today for COVID19 your test result should be back in the next 24-48 hours, you may call to the [facility] to see if your test results are back in the next 48 hours [phone] [facility] hours are 9am-9pm You was given a handout with instructions for Self Quarantine and Self isolation for while you wait on test results and what to do if they are positive If you are positive the Health Dept will be contacting you also Referrals: Pacheco Johnson MD [Primary Care Provider] - As needed Time of Disposition: 11:48 Medical Decision Making - Singh Inquiry Pt receiving controlled substance: No Singh was queried for this patient: No Vital Signs: 02/12/21 11:21 Temperature 98.6 F Temperature Source Oral Pulse Rate [Apical] 85 Respiratory Rate 16 Blood Pressure [Right Arm] 135/93 H Blood Pressure Mean [Right Arm] 107 Blood Pressure Source [Right Arm] Automatic Cuff Blood Pressure Position [Right Arm] Supine 02 Sat by Pulse Oximetry 96 Oxygen Delivery Method Room Air Orders (Tests/Meds): ORDERS Category Date Time Status Covid-19 Nasal PCR ([facility]) Routine Lab 02/12/21 11:27 Ordered [facility] HPI - General Stated complaint: covid test Time Seen by Provider: 02/12/21 11:45 Mode of Arrival: Ambulatory Source of Information: Patient Limitations: No Limitations Description of Symptoms (Recalled from Triage Doc. by RN): covid 19 test HEENT Symptoms (Recalled from RN notes): No Resp Symptoms (Recalled from RN notes): No Skin Symptoms (Recalled from RN notes): No MS Symptoms (Recalled from RN notes): No Functional Status (Recalled from RN notes): na - History of Present Illness Provider Complaint: Patient state that he has to get a COVID test for travel States that he has not been around anyone that he is aware of with COVID but needed to get tested - Related Data Home Medications Medication Instructions Recorded Confirmed Vilazodone HCl [Viibryd 40mg 40 mg PO DAILY 02/12/18 09/25/20 Tablet] hydrOXYzine pamoate [Hydroxyzine 50 mg PO HSP PRN 02/12/18 09/25/20 Pamoate] Atorvastatin Calcium [Lipitor 20mg 20 mg PO HS 05/26/20 09/25/20 Tab] Levothyroxine Sodium 75 mcg PO DAILY 05/26/20 09/25/20 [Levothyroxine 75mcg (0.075mg) Tab] Metformin HCl [Metformin HCl ER] 1,500 mg PO DAILY 05/26/20 09/25/20 Previous Rx's Medication Instructions Recorded albuterol sulfate 90 mcg/actuation 1 inh INHALATION QID PRN #8.5 g 09/25/20 aerosol inhaler fluticasone 100 mcg-salmeterol 50 1 inh INHALATION BID #60 each 09/25/20 mcg/dose blistr powdr for inhalation Allergies Allergy/AdvReac Type Severity Reaction Status Date / Time No Known Allergies Allergy Verified 09/25/20 11:17 - Worker's Comp Is this a Worker's Comp case?: No [facility] History - Hepatitis A Screen Drug use history?: No High risk sexual behaviors?: No History of sexually transmitted infection?: No Currently employed?: No Childcare worker?: No Do you have indoor plumbing?: Yes Do you have elect
[2021-02-12 11:52] VITALS: BP 135/93; PULSE 85; RESP 16; TEMP 36.9; O2SAT 96
== END 2021-02-12 11:53 | disposition home or self-care (01) ==
PROVIDERS: Emergency Provider Nurse Practitioner; PCP Family Medicine
DX: Z11.52 Encounter for screening for COVID-19 (principal); E11.9 Type 2 diabetes mellitus without complications
CPT/HCPCS: 99202; G0463; U0003

== ENCOUNTER → 2022-02-14 12:46 | Outpatient (CLI) | payer BC, SELFPAY ==
--- NOTE | 2022-02-14 12:50 | XR_ITS ---
FINAL REPORT CLINICAL HISTORY: right hand pain FINDINGS: RIGHT HAND: 3 views of the right hand were obtained. There is no acute fracture or dislocation. Visualized joint spaces are normally aligned. There is soft tissue swelling over the 3rd digit. IMPRESSION: No acute bony abnormality. Reviewed, Interpreted and Dictated by Craig Rae III, MD Transcribed by Joi Frederick Authenticated and [facility]
--- NOTE | 2022-02-14 12:50 | XR_ITS ---
FINAL REPORT CLINICAL HISTORY: left foot pain FINDINGS: LEFT FOOT Three views of the left foot demonstrate no acute fracture or dislocation. There are small calcaneal spurs. The visualized joint spaces are normally aligned. The soft tissues are unremarkable. IMPRESSION: No acute bony abnormality. Reviewed, Interpreted and Dictated by Craig Rae III, MD Transcribed by Joi Frederick Authenticated and [facility]
== END ==
PROVIDERS: PCP Family Medicine; Visit Provider Orthopaedic Surgery
DX: M79.672 Pain in left foot (principal); M79.644 Pain in right finger(s)
CPT/HCPCS: 73130; 73630

== ENCOUNTER → 2022-02-19 05:59 | Outpatient (CLI) | payer BC, SELFPAY ==
[2022-02-19 22:15] LABS: Free T4 (Free Thyroxine) 1.06 ng/dl (0.78-2.19)
[2022-02-19 22:34] LABS: Thyroid Stimulating Hormone 5.65 uIU/mL (0.465-4.68)
== END ==
PROVIDERS: PCP Nurse Practitioner; Visit Provider Nurse Practitioner
DX: E03.9 Hypothyroidism, unspecified (principal)
CPT/HCPCS: 84439; 84443

== ENCOUNTER → 2022-03-11 07:18 | Outpatient (CLI) | payer BC, SELFPAY | PROVIDERS: PCP Family Medicine; Visit Provider Family Medicine | DX: N64.51 Induration of breast (principal) ==

== ENCOUNTER 2023-09-16 20:28 | Outpatient (CLI) | payer BC, SELFPAY ==
[2023-09-16 21:03] LABS: Basophils # 0.1 K/mm3 (0-0.2); Basophils % 0.9 % (0.1-2.0); Eosinophils # 0.1 K/mm3 (0.0-0.4); Eosinophils % 1.5 % (0.1-12.0); Hematocrit 50.4 % (42.0-52.0); Lymphocytes # 2.2 K/mm3 (0.7-4.5); Lymphocytes % 34.3 % (10-50); Mean Corpuscular HGB Conc 31.8 g/dL (31.8-35.4); Mean Corpuscular Hemoglobin 28.2 pg (27.0-31.2); Mean Corpuscular Volume 88.9 fl (80-94); Mean Platelet Volume 11.2 fl (7.4-10.4); Monocytes # 0.4 K/mm3 (0.1-1.0); Monocytes % 6.5 % (1.7-9.3); Neutrophils # 3.6 K/mm3 (1.8-7.8); Neutrophils % 56.8 % (37.0-80.0); Platelet Count 227 K/mm3 (142-424); Red Blood Count 5.67 M/mm3 (4.60-6.20); Red Cell Distribution Width 14.4 % (11.5-17.5); White Blood Count 6.3 K/mm3 (4.8-10.8)
[2023-09-16 21:13] LABS: Alanine Aminotransferase 27 U/L (12-78); Albumin Level 4.4 g/dl (3.5-5.0); Albumin/Globulin Ratio 1.7 (1.1-1.8); Alkaline Phosphatase 88 U/L (38-126); Anion Gap 12.6 mEq/L (5-15); Aspartate Amino Transferase 32 U/L (17-59); Bilirubin,Total 0.5 mg/dl (0.2-1.3); Blood Urea Nitrogen 15 mg/dl (9-20); Calcium 9.2 mg/dl (8.4-10.2); Carbon Dioxide 25 mmol/L (22.0-30.0); Chloride 106 mmol/L (98-107); Chol/HDL Ratio 5.5 (1-3.5); Cholesterol 171 mg/dl (140-200); Estimated Glomerular Filt Rate 70 ml/min (>60); GFR (African American) 85 ML/MIN (>60); Globulin 2.6 g/dL (1.3-3.2); Glucose 93 mg/dl (74-100); HDL Cholesterol 31 mg/dl (40-60); Potassium 4.6 mmoL/L (3.5-5.1); Sodium 139 mmol/L (136-145); Triglycerides 148 mg/dl (30-150); VLDL Cholesterol 30 mg/dL (0-40)
[2023-09-16 21:25] LABS: Direct LDL Cholesterol 99.74 mg/dL (100-129)
[2023-09-16 21:31] LABS: Free T4 (Free Thyroxine) 1.13 ng/dl (0.78-2.19)
[2023-09-16 21:32] LABS: 25-OH Vitamin D, Total 38.6 ng/mL (30-100); Hemoglobin A1C 5.7 % (4.0-6.0)
[2023-09-16 21:45] LABS: Prostate Specific Ag Screen 0.3 ng/ml (0.0-4.0); Thyroid Stimulating Hormone 3.93 uIU/mL (0.465-4.68)
[2023-09-16 22:04] LABS: Vitamin B12 162 pg/mL (239-931)
[2023-09-16 22:14] LABS: Microalbumin/Creatinine Ratio 9.5
[2023-09-16 22:19] LABS: Creatinine,Urine Random 112 mg/dL (Not Estab.)
== END 2023-09-16 23:59 ==
PROVIDERS: PCP Nurse Practitioner; Visit Provider Nurse Practitioner
DX: E11.9 Type 2 diabetes mellitus without complications (principal); E78.5 Hyperlipidemia, unspecified; E03.9 Hypothyroidism, unspecified; F32.A Depression, unspecified; N40.0 Benign prostatic hyperplasia without lower urinary tract symptoms; J30.9 Allergic rhinitis, unspecified; Z79.84 Long term (current) use of oral hypoglycemic drugs; Z79.899 Other long term (current) drug therapy; Z12.5 Encounter for screening for malignant neoplasm of prostate
CPT/HCPCS: 80053; 80061; 82043; 82306; 82570; 82607; 83036; 84439; 84443; 85025; G0103

== ENCOUNTER 2024-01-13 11:21 | Outpatient (CLI) | payer BC, SELFPAY ==
[2024-01-13 21:05] LABS: Influenza A, PCR Not Detected (NotDetected); Influenza B, PCR Not Detected (NotDetected)
[2024-01-13 21:47] LABS: Coronavirus 19, PCR Detected (NotDetected)
== END 2024-01-13 23:59 | disposition home or self-care (01) ==
LOC: LAB.DROPOF 01-14 11:21
PROVIDERS: PCP Nurse Practitioner; Visit Provider Nurse Practitioner
DX: J06.9 Acute upper respiratory infection, unspecified (principal)
CPT/HCPCS: 87636

== ENCOUNTER 2024-08-08 10:27 | Outpatient (CLI) | payer BC, SELFPAY ==
[2024-08-08 18:12] LABS: Basophils % 0.5 % (0.1-2.0); Eosinophils # 0.1 K/mm3 (0.0-0.4); Eosinophils % 1.6 % (0.1-12.0); Hematocrit 49.8 % (42.0-52.0); Hemoglobin 15.7 g/dL (14.1-18.0); Lymphocytes # 1.7 K/mm3 (0.7-4.5); Mean Corpuscular HGB Conc 31.5 g/dL (31.8-35.4); Mean Corpuscular Hemoglobin 27.4 pg (27.0-31.2); Mean Corpuscular Volume 86.8 fl (80-94); Mean Platelet Volume 11.7 fl (7.4-10.4); Monocytes # 0.4 K/mm3 (0.1-1.0); Monocytes % 7.1 % (1.7-9.3); Neutrophils # 3.2 K/mm3 (1.8-7.8); Neutrophils % 58.4 % (37.0-80.0); Platelet Count 219 K/mm3 (142-424); Red Blood Count 5.74 M/mm3 (4.60-6.20); Red Cell Distribution Width 13.5 % (11.5-17.5); White Blood Count 5.5 K/mm3 (4.8-10.8)
[2024-08-08 19:28] LABS: Albumin Level 4.4 g/dl (3.5-5.0); Chloride 104 mmol/L (98-107); Sodium 139 mmol/L (136-145)
[2024-08-08 19:29] LABS: Potassium 5.1 mmoL/L (3.5-5.1)
[2024-08-08 19:31] LABS: Alanine Aminotransferase 32 U/L (12-78); Albumin/Globulin Ratio 1.8 (1.1-1.8); Anion Gap 14.1 mEq/L (5-15); Aspartate Amino Transferase 33 U/L (17-59); Blood Urea Nitrogen 17 mg/dl (9-20); Carbon Dioxide 26 mmol/L (22.0-30.0); Estimated Glomerular Filt Rate 78 ml/min (>60); GFR (African American) 94 ML/MIN (>60); Globulin 2.5 g/dL (1.3-3.2); Total Protein,Serum 6.9 g/dl (6.3-8.2)
[2024-08-08 19:32] LABS: Alkaline Phosphatase 81 U/L (38-126); Bilirubin,Total 0.2 mg/dl (0.2-1.3); Calcium 9.3 mg/dl (8.4-10.2); Chol/HDL Ratio 3.9 (1-3.5); Cholesterol 159 mg/dl (140-200); Glucose 101 mg/dl (74-100); HDL Cholesterol 41 mg/dl (40-60); Triglycerides 87 mg/dl (30-150); VLDL Cholesterol 17 mg/dL (0-40)
[2024-08-08 19:36] LABS: 25-OH Vitamin D, Total 32.5 ng/mL (30-100)
[2024-08-08 19:38] LABS: Free T4 (Free Thyroxine) 1.26 ng/dl (0.78-2.19)
[2024-08-08 19:42] LABS: Microalbumin/Creatinine Ratio 9.4
[2024-08-08 19:44] LABS: Direct LDL Cholesterol 91.92 mg/dL (100-129)
[2024-08-08 19:51] LABS: Creatinine,Urine Random 73 mg/dL (Not Estab.)
[2024-08-08 20:18] LABS: Prostate Specific Ag, Diagnost 0.336 ng/ml (0.0-4.0); Thyroid Stimulating Hormone 3.49 uIU/mL (0.465-4.68)
[2024-08-08 20:35] LABS: Vitamin B12 372 pg/mL (239-931)
[2024-08-09 00:14] LABS: Hemoglobin A1C 5.4 % (4.0-6.0)
== END 2024-08-08 23:59 | disposition home or self-care (01) ==
LOC: LAB.DROPOF 08-09 12:04
PROVIDERS: PCP Nurse Practitioner; Visit Provider Nurse Practitioner
DX: E11.9 Type 2 diabetes mellitus without complications (principal); E78.5 Hyperlipidemia, unspecified; E03.9 Hypothyroidism, unspecified; E53.8 Deficiency of other specified B group vitamins; N40.0 Benign prostatic hyperplasia without lower urinary tract symptoms; Z12.5 Encounter for screening for malignant neoplasm of prostate
CPT/HCPCS: 80053; 80061; 82043; 82306; 82570; 82607; 83036; 84153; 84439; 84443; 85025

== ENCOUNTER 2025-02-06 09:01 | Outpatient (CLI) | payer BC, SELFPAY ==
[2025-02-06 14:47] LABS: Microscopic, Urine URINE MICROSCOPIC (MICROSCOPIC)
[2025-02-06 15:11] LABS: Bilirubin,Urine Negative (Negative); Color,Urine YELLOW (Yellow); Glucose,Urine (UA) 3+ (Negative); Ketones,Urine Negative (Negative); Leukocyte Esterase,Urine Negative (Negative); PH,Urine 6.0 (5.0-8.5); Protein,Urine Negative (Negative); Specific Gravity, Urine 1.015 (1.005-1.030); Urobilinogen,Urine 1.0 EU/dl (0.2)
[2025-02-06 15:40] LABS: Hemoglobin A1C 5.6 % (4.0-6.0)
[2025-02-06 15:58] LABS: Alanine Aminotransferase 30 U/L (12-78); Albumin Level 4.1 g/dl (3.5-5.0); Albumin/Globulin Ratio 1.9 (1.1-1.8); Alkaline Phosphatase 84 U/L (38-126); Anion Gap 10.4 mEq/L (5-15); Aspartate Amino Transferase 30 U/L (17-59); Bilirubin,Total 0.3 mg/dl (0.2-1.3); Blood Urea Nitrogen 16 mg/dl (9-20); Calcium 9.1 mg/dl (8.4-10.2); Carbon Dioxide 24 mmol/L (22.0-30.0); Chloride 106 mmol/L (98-107); Cholesterol 147 mg/dl (140-200); Creatinine,Serum 1.00 mg/dl (0.66-1.25); Estimated Glomerular Filt Rate 78 ml/min (>60); GFR (African American) 94 ML/MIN (>60); Globulin 2.2 g/dL (1.3-3.2); Glucose 101 mg/dl (74-100); HDL Cholesterol 35 mg/dl (40-60); Potassium 4.4 mmoL/L (3.5-5.1); Sodium 136 mmol/L (136-145); Total Protein,Serum 6.3 g/dl (6.3-8.2); Triglycerides 151 mg/dl (30-150)
[2025-02-06 16:25] LABS: Free T4 (Free Thyroxine) 1.13 ng/dl (0.78-2.19)
[2025-02-06 16:33] LABS: Thyroid Stimulating Hormone 3.39 uIU/mL (0.465-4.68)
[2025-02-06 18:18] LABS: WBC,Urine Occasional #/hpf (0-3)
[2025-02-06 18:19] LABS: Bacteria,Urine Trace /lpf
--- OUTSIDE RECORDS SUMMARY | 2025-02-07 15:38 | XMS_ITS | Encounter Summary ---
Author Organization [facility] Address [address] [place] [address] Care Team Providers Care Lead Applications Developer Name Role Phone Shan Carroll MD Primary Care Provider [phone] Kimmie Baca NP Primary Care Provider [phone] Shadia Vasques RN Unavailable Reason for Visit * Reason Onset Date Comments No Show Appt Follow-up 03/19/2018 No show f or diabetes education appt. lvm Encounter Details Date Type Department Care Team (Late st Contact Info) Description 03/19/2018 Telephone [facility] - Diabetes [facility]ocrine [facility], [address] [place] [address] [address]is Mario [address] [place], [place] [id number] No Show Appt Follow-up (No show for diabetes education appt. lvm) Social History Tobacco Use Types Packs/Day Years Used Date Smoking Tobacco: Never Smokeless Tobacco: Former Chew Quit: 10/19/1998 Alcohol Use Standard Drinks/Week Comments No 0 (1 standard drink = 0.6 oz pur e alcohol) last drank Sex and Gender Information Value Date Recorded Sex Assigned at Not on file Legal Sex Male 7:16 PM EST Gender Identity Not on file Sexual Orientation Not on file documented as of this encounter Plan of Treatment Not on file documented as of this encounter Visit Diagnoses Not on filedocumented in this encounter Care Teams Lead Applications Developer Relationship Specialty Start Date End Date Shan Carroll MD PCP - General Family Medicine 10/17/11 10/12/18 Kimmie Baca NP [address] [facility] [place] [address] PCP - General Nurse Practitioner, Family 10/13/18 03/19/19 Shadia Vasques, RN [address] [place] [address] Accountancy Professor 01/07/19 03/20/19 [facility]) Consulting Physician Optometry 02/22/19 documented as of this encounter
--- OUTSIDE RECORDS SUMMARY | 2025-02-07 15:38 | XMS_ITS | Encounter Summary ---
Author Organization [facility] Address [address] [place] [address] Care Team Providers Care Commercial Engineer Name Role Phone Shan Carroll MD Primary Care Provider [phone] Kimmie Baca NP Primary Care Provider [phone] Shadia Vasques RN Unavailable [phone] Reason for Visit * Reason Onset Date Comments Scheduling 04/27/2018 Encounter Details Date Type Department Care Team (Late st Contact Info) Description 04/27/2018 Telephone [facility] - Diabetes [facility] Endocrine Center, [address] [place] [address] Gemini Alfred [address] [place] [address] Scheduling Social History Tobacco Use Types Packs/Day Years [...] on file documented as of this encounter Miscellaneous Notes * Telephone Encounter - Gemini Alfred - 04/27/2018 5:29 PM EDT Patient has NO SHOWED 3'xs documented in this encounter Plan of Treatment Not on file documented as of this encounter Visit Diagnoses Not on filedocumented in this encounter Care Teams Commercial Engineer Relationship Specialty Start Date End Date Shan Carroll MD PCP - General Family Medicine 10/17/11 10/12/18 Kimmie Baca NP [address] [place] [address] [place] [address] PCP - General Nurse Practitioner, Family 10/13/18 03/19/19 Shadia Vasques, RN [address] [place], [place] [id number] Inspector Metal Can 01/07/19 03/20/19 [facility]) Consulting Physician Optometry 02/22/19 documented as of this encounter
--- OUTSIDE RECORDS SUMMARY | 2025-02-07 15:38 | XMS_ITS | Encounter Summary ---
Author Organization [facility] Address [address] [place] [address] Care Team Providers Care Roto Gravure Press Operator Name Role Phone Shan Carroll MD Primary Care Provider [phone] Kimmie Baca NP Primary Care Provider [phone] Shadia Vasques RN Unavailable [phone] Reason for Visit * Reason Onset Date Comments No Show Appt Follow-up 04/26/2018 No show X 3 for education appt, lvm Encounter Details Date Type Department Care Team (Late st Contact Info) Description 04/26/2018 Telephone [facility] - Diabetes [facility] Endocrine Center, [address] [place] [address] Mario [address] [place], [place] [id number] No Show Appt Follow-up (No show X 3 for education appt, lvm) Social History Tobacco Use Types Packs/Day [...] on filedocumented in this encounter Care Teams Roto Gravure Press Operator Relationship Specialty Start Date End Date Shan Carroll MD PCP - General Family Medicine 10/17/11 10/12/18 Kimmie Baca NP [address] [place] [address] PCP - General Nurse Practitioner, Family 10/13/18 03/19/19 Shadia Vasques, RN [address] [place] [address] School Supervisor 01/07/19 03/20/19 [facility]) Consulting Physician Optometry 02/22/19 documented as of this encounter
--- OUTSIDE RECORDS SUMMARY | 2025-02-07 15:38 | XMS_ITS | Encounter Summary ---
Author Organization [facility] Address [address] [place] [address] Care Team Providers Care Medical Grade Shoemaker Name Role Phone Shan Carroll MD Primary Care Provider [phone] Kimmie Baca NP Primary Care Provider Shadia Vasques RN Unavailable [phone] Reason for Visit * Reason Onset Date Comments No Show Appt Follow-up 04/09/2018 No show f or education appt. lvm to reschedule Encounter Details Date Type Department Care Team (Late st Contact Info) Description 04/09/2018 Telephone [facility] - Diabetes [facility] Endocrine Center, [address] [place] [address] Miladis Mario [address] [place] [id number] No Show Appt Follow-up (No show for education appt. lvm to reschedule) Social History Tobacco Use Types Packs/Day Years [...] on filedocumented in this encounter Care Teams Medical Grade Shoemaker Relationship Specialty Start Date End Date Shan Carroll MD PCP - General Family Medicine 10/17/11 10/12/18 Kimmie Baca NP [address] [facility] [place] [address] PCP - General Nurse Practitioner, Family 10/13/18 03/19/19 Shadia Vasques, RN [address] [place] [address] Certified Nuclear Medicine Technologist 01/07/19 03/20/19 [facility]) Consulting Physician Optometry 02/22/19 documented as of this encounter
--- OUTSIDE RECORDS SUMMARY | 2025-02-07 15:38 | XMS_ITS | Encounter Summary ---
Author Organization [facility] Address [address] [place], [place] [address] Care Team Providers Care After School Teacher Name Role Phone Unavailable Primary Care Provider Unavailabl e Reason for Visit * Reason Comments Medications Refill Encounter Details Date Type Department Care Team (Late st Contact Info) Description 08/17/2019 Refill [facility] Physicians - Primary Care, [place] [address] [place] [address] Kimmie Baca NP [address] [place] [address] Medications Refill Social History Tobacco Use Types Packs/Day Years Used Date Smoking Tobacco: Never Smokeless Tobacco: Former Chew Quit: 10/19/1998 Alcohol Use Standard Drinks/Week Comments No 0 (1 standard drink = 0.6 oz pur e alcohol) last drank PHQ-2 Answer Date Recorded PHQ-2 Score 0 10/16/2018 Sex and Gender Information Value Date Recorded Sex Assigned at Not on file Legal Sex Male 7:16 PM EST Gender Identity Not on file Sexual Orientation Not on file documented as of this encounter Miscellaneous Notes * Telephone Encounter - Kimmie Baca NP - 08/17/2019 12:23 PM EST We are no longer his PCP Established with [facility] FU with them for RFs * Telephone Encounter - Joi Graham RMA - 08/17/2019 7:41 AM EST Requested Prescriptions Pending Prescriptions Disp Refills ??? tamsulosin (FLOMAX) 0.4 mg sustained release capsule [Pharmacy Med Name: TAMSULOSIN HCL 0.4 MG CAPSULE] 90 Cap 1 Sig: TAKE 1 CAPSULE BY MOUTH EVERYDAY AT BEDTIME Last appt and type-08/30/18 [place] Next appt and type-No appt scheduled Pending labs on file- Yes documented in this encounter Plan of Treatment Not on file documented as of this encounter Visit Diagnoses Not on filedocumented in this encounter Additional Health Concerns Assessment Noted Time PHQ-9 Depression Total Score: 1 08/30/19 19 11:24 AM EST documented as of this encounter Care Teams After School Teacher Relationship Specialty Start Date End Date [place] [facility]) Consulting Physician Optometry 02/22/19 documented as of this encounter
--- OUTSIDE RECORDS SUMMARY | 2025-02-07 15:38 | XMS_ITS | Clinical Summary ---
Author Organization [facility] Address [address] [place] [address] Care Team Providers Care Clinical Support Nurse Name Role Phone Shan Carroll MD Primary Care Provider [phone] Source Comments This information has been disclosed to you from confidential records protectedfrom disclosure by state law. You shall make no further disclosure of thisinformation without the specific, written, and informed release of theindividual to whom it pertains, or as otherwise permitted by law. A generalauthorization for the release of medical or other information is not sufficientfor the purposes of therelease of HIV test results or diagnoses. [id number] Allergies No known active allergies Medications VIIBRYD 40 mg Tab TAKE 1 TABLET BY MOUTH DAILY WITH BREAKFAST 2 6 Active tamsulosin (FLOMAX) 0.4 mg Cp24 TAKE 1 CAP BY MOUTH NIGHTLY AT BEDTIME. 5 6 Active omeprazole (PRILOSEC) 20 MG capsule TAKE ONE CAPSULE BY MOUTH EVERY DAY 3 6 Active levothyroxine (SYNTHROID, LEVOTHROID) 150 MCG tablet TAKE 1 TAB BY MOUTH DAILY. 2 6 Active buPROPion XL (WELLBUTRIN XL) 150 MG tablet TAKE 1 TAB BY MOUTH DAILY. 2 6 Active fexofenadine (ALLERGY RELIEF, FEXOFENADINE,) 180 MG tablet TAKE 1 TABLET BY MOUTH EVERY DAY 5 Active fluocinonide (LIDEX) 0.05 % ointmentIndicat ions:Bug bites, initial encounter Apply topically 2 times a day. 60 g 1 6 Active Active Problems No known active problems Social History Tobacco Use Types Packs/Day Years Used Date Smoking Tobacco: Never Smokeless Tobacco: Former Quit: 04/23/1999 Sex and Gender Information Value Date Recorded Sex Assigned at Not on file Legal Sex Male 4:16 PM EST Gender Identity Not on file Sexual Orientation Not on file Plan of Treatment Not on file Insurance BLUE OTHER Care Teams Clinical Support Nurse Relationship Specialty Start Date End Date Shan [place] [address] [address] PCP - General Family Medicine 04/23/16
--- OUTSIDE RECORDS SUMMARY | 2025-02-07 15:38 | XMS_ITS | Clinical Summary ---
Author Organization [facility] Address [address] [place] [address] Care Team Providers Care Paper Pattern Folder Name Role Phone Unavailable Primary Care Provider Unavailabl e Allergies Active Allergy Reactions Criticality Noted Date Comments Aripiprazole Shortness Of Breath,Nausea Only Medications ALLERGY RELIEF, FEXOFENADINE, 180 mg tablet TAKE 1 TABLET BY MOUTH EVERY DAY 30 Tab 3 5 Active DYMISTA 137-50 mcg/spray Sidney, Non-AerosolIndic ations:Benign prostatic hyperplasia, unspecified whether lower urinary tract symptoms present,Depressi on, unspecified depression type,Hypothyroid ism, unspecified type,Elevated glucose,Shortnes s of breath SPRAY 1 SPRAY INTO EACH NOSTRIL EVERY DAY 3 8 Active fluocinonide (LIDEX) 0.05 % ointmentIndicati ons:Benign prostatic hyperplasia, unspecified whether lower urinary tract symptoms present,Depressi on, unspecified depression type,Hypothyroid ism, unspecified type,Elevated glucose,Shortnes s of breath Apply topically. 6 Active levothyroxine (SYNTHROID) 150 mcg tablet TAKE 1 TABLET BY MOUTH EVERY DAY 90 Tab 3 9 Active metFORMIN (GLUCOPHAGE-XR) 750 mg XR tabletIndication s:Uncontrolled type 2 diabetes mellitus without complication, without long-term current use of insulin Take 1 Tab by mouth 2 times daily. 180 Tab 1 9 Active hydrOXYzine Pamoate (VISTARIL) 50 mg capsuleIndicatio ns:Anxiety TAKE 1 CAPSULE BY MOUTH EVERYDAY AT BEDTIME 90 Cap 1 9 Active tamsulosin (FLOMAX) 0.4 mg sustained release capsule Take 1 Cap by mouth nightly at bedtime. 90 Cap 1 9 Active Viibryd 40 mg TabletIndication s:PE (physical exam), annual,Benign prostatic hyperplasia, unspecified whether lower urinary tract symptoms present TAKE ONE TABLET BY MOUTH ONCE DAILY WITH BREAKFAST 90 Tab 1 9 Active Active Problems Problem Noted Date Diagnosed Date Uncontrolled type 2 diabetes mellitus with hyper glycemia 08/30/2018 Acquired hypothyroidism 08/30/2018 BPH (benign prostatic hyperplasia) 12/17/2012 Immunizations Immunization Administration Dates Next Due Influenza 06/25/2016 Influenza (whole) 04/14/2013 Family History * Patient is adopted Relation Name Status Comments Daughter 1 Alive Daughter 2 Alive Father Mother Alive Son 1 Alive Son 2 Alive Son 3 Alive Social History Tobacco Use Types Packs/Day Years Used Date Smoking Tobacco: Never Smokeless Tobacco: Former Chew Quit: 10/19/1998 Tobacco Cessation:Counseling Given: Yes Alcohol Use Standard Drinks/Week Comments No 0 (1 standard drink = 0.6 oz pur e alcohol) last drank PHQ-2 Answer Date Recorded PHQ-2 Score 0 10/16/2018 Sex and Gender Information Value Date Recorded Sex Assigned at Not on file Legal Sex Male 7:16 PM EST Gender Identity Not on file Sexual Orientation Not on file Last Filed Vital Signs Vital Sign Reading Time Taken Comments Blood Pressure 116/72 08/30/2018 11:20 AM EST Pulse 113 08/30/2018 11:20 AM EST Temperature 36.8 C (98.3 F) 08/30/2018 11:20 AM EST Respiratory Rate 16 02/22/2014 3:35 PM EDT Oxygen Saturation 98% 08/30/2018 11:20 AM EST Inhaled Oxygen Concentration - - Weight 89.8 kg (198 lb) 08/30/2018 11:20 AM EST Height 182.9 cm (6') 02/26/2018 10:00 AM EDT Body Mass Index 26.85 02/26/2018 10:00 AM EDT Plan of Treatment Health Maintenance Due Date Last Done Comments Cologuard 1970 Colonoscopy 1970 Colorectal Cancer Screening 1970 FIT 1970 Tetanus Vaccination (Every 10 Years) 1988 Pneumococcal Vaccine: 50+ Ye ars (1 of 1 - PCV) 2020 Zoster-RZV(Shingrix) (1 of 2) 2020 Lipid Screening 10/24/2020 10/25/2015, 02/2014, 08/20/2012 COVID-19 Vaccine (1 - 2023-2 5 season) 2024 Depression Screening 07/13/2024 08/30/2018 Influenza Vaccination (#1) 2025 06/25/2016, Influenza Vaccination (Yearly) Discontinued 06/25/2016 , 04/14/2013 Diabetes Mellitus Hemoglobin A1c (Yearly) Discontinued 02/17/2018, 07/20/2013 Procedures Procedure Name Priority Date/Time Associated Diagnosis Comments HGB, A1C (GLYCOHEMOGLOBIN) Routine 02/17/2018 4:45 PM EDT Benign prostatic hyperplasia, unspecified whether lower urinary tract symptoms present Depression, unspecified depression type Hypothyroidism, unspecified type Elevated glucose Shortness of breath LIPID PROFILE Routine 10/25/2015 3:28 PM EDT Acquired hypothyroidism from Last 3 Months or Most Recently Relevant to Health Maintenance Results * (ABNORMAL) HGB, A1C (GLYCOHEMOGLOBIN) (02/17/2018 4:45 PM EDT) Hgb A1C 10.6(H) 4.0 - 5.6 % [facility] Comment: Reference Ranges for Hgb A1c: Increased risk for diabetes: 5.7-6.4% Probable diabetes: >=6.5% Desired control for previously diagnosed diabetics: <7.0% Many conditions can affect the Hgb A1c value including hemolysis, recent transfusion, hemoglobin variants, thalassemias, severe chronic hepatic and renal disease and iron deficiency among others. Please note that results from this assay are invalid for patients with abnormal amounts of Hemoglobin (HbF). Results must be interpreted in the proper clinical context. This method is certified by the National Glycohemoglobin Standardization program (NGSP) and traceable to [facility]. Estimated Average Glucose 258(H) 68 - 114 mg/dL [facility] Whole Blood 02/17/2018 4:45 PM EDT 02/17/2018 8:04 PM EDT Shan Carroll MD CHEMISTRY ORDERABLES Final Res ult Performing Organization Address [facility] de Phone Number [facility] [address] * (ABNORMAL) LIPID PROFILE (10/25/2015 3:28 PM EDT) [facility] Chol/HDL Ratio 4.5 0 - 5 [facility] Cholesterol 200(H) 125 - 199 mg/dL [facility] Comment: TOTAL CHOLESTEROL INTERPRETATION: Less than 200 mg/dL Desireable 200-239 mg/dL Borderline Greater or Equal to 240 mg/dL High LDL Calculated 132(H) 0 - 100 mg/dL [facility] Comment: LDL CHOLESTEROL INTERPRETATION: Less than 100 mg/dL Optimal 100-129 mg/dL Near optimal/above optimal 130-159 mg/dL Borderline High 160-189 mg/dL High Greater or Equal to 190 mg/dL Very High HDL 44 40 - 180 mg/dL [facility] Comment: HDL CHOLESTEROL INTERPRETATION: Less than 40 mg/dL Low Greater than 60 mg/dL Desirable Triglycerides 122 0 - 150 mg/dL [facility] Comment: TOTAL TRIGLYCERIDE INTERPRETATION: Less than 150 mg/dL Normal 150-199 mg/dL Borderline HIgh 200-499 mg/dL High Greater or Equal to 500 mg/dL Very High Plasma 10/25/2015 3:28 PM EDT 10/25/2015 7:49 PM EDT Narrative [facility] - 10/25/2015 8:17 PM EDT Has the patient fasted?->Yes us Shan Carroll MD CHEMISTRY ORDERABLES Final Res ult Performing Organization Address [facility]/ZIP Co de Phone Number [facility] [address] from Last 3 Months or Most Recently Relevant to Health Maintenance Insurance ANTH Care Teams Paper Pattern Folder Relationship Specialty Start Date End Date [facility] Consulting Physician Optometry 02/22/19
--- OUTSIDE RECORDS SUMMARY | 2025-02-07 15:38 | XMS_ITS | Encounter Summary ---
Author Organization [facility] Address [address] [place] [address] Care Team Providers Care Pattern Filer Name Role Phone Kimmie Baca NP Primary Care Provider [phone] Shadia Vasques RN Unavailable [phone] Reason for Visit * Reason Comments Medications Refill Encounter Details Date Type Department Care Team (Late st Contact Info) Description 01/02/[address] [facility] Physicians - Primary Care, [place] [address] [place] [address] Jeri Barron NP Medications Refill Social History Tobacco Use Types [...] encounter Miscellaneous Notes * Telephone Encounter - Divya Cm, [facility] - 01/03/2019 11:31 AM EDT Requested Prescriptions Pending Prescriptions Disp Refills ??? VIIBRYD 40 mg Tablet [Pharmacy Med Name: VIIBRYD 40 MG TABLET] 30 Tab 4 Sig: TAKE ONE TABLET BY MOUTH ONCE DAILY WITH BREAKFAST Last appt and type- 08/30/18 for check up Next appt and type- 02/28/19 for PE Pending labs on file- Yes documented in this encounter Plan of Treatment Not on file documented as of this encounter Visit Diagnoses Diagnosis PE (physical exam), annual Routine general medical examination at a health care facility Benign prostatic hyperplasia, unspecified whether lower urinary tract symptoms present documented in this encounter Additional Health Concerns Assessment Noted Time PHQ-9 Depression Total Score: 1 08/30/19 19 11:24 AM EST documented as of this encounter Care Teams Pattern Filer Relationship Specialty Start Date End Date Kimmie Baca NP [address] [facility] [place] [address] PCP - General Nurse Practitioner, Family 10/13/18 03/19/19 Shadia Vasques, RN [address] [place], [place] [address] News Director 01/07/19 03/20/19 [facility]) Consulting Physician Optometry 02/22/19 documented as of this encounter
--- OUTSIDE RECORDS SUMMARY | 2025-02-07 15:38 | XMS_ITS | Clinical Summary ---
Author Organization [facility] Address [address] [place] [address] Care Team Providers Care Photocopying Equipment Repairer Name Role Phone Shan Carroll MD Primary Care Provider [phone] Allergies No known active allergies Medications METFORMIN HCL PO Take by mouth. Active levothyroxine (SYNTHROID, LEVOTHROID) 150 MCG tablet Take 150 mcg by mouth Daily. Active vilazodone (VIIBRYD) 40 MG tablet tablet Take 40 mg by mouth Daily. Active cetirizine (zyrTEC) 10 MG tablet Take 10 mg by mouth Daily. Active Social History Tobacco Use Types Packs/Day Years Used Date Smoking Tobacco: Never Alcohol Use Standard Drinks/Week Comments No 0 (1 standard drink = 0.6 oz pur e alcohol) AUDIT-C Answer Date Recorded Frequency of Alcohol Consumption Never 05/28/2018 Average Number of Drinks Not on file 018 Frequency of Binge Drinking Not on file 05/13 Abuse Screen Answer Date Recorded Unsafe at Home or Work/School Not on file Feels Threatened by Someone? Not on file 06/2023 Does Anyone Keep You from Co ntacting Others or Doint Things Outside the Home? Not on file 04/23/2023 Physical Sign of Abuse Present Not on file 1 Housing Stability Answer Date Recorded Current Living Arrangements Not on file 04/12 Potentially Unsafe Housing Conditions Not on michel e 04/23/2023 Family and Community Support Answer Aric e Recorded Help with Day-to-Day Activities Not on file 04/23/2023 Lonely or Isolated Not on file 04/23/2023 Employment Answer Date Recorded Do you want help finding or keeping work or a vani b? Not on file 04/23/2023 Disabilities Answer Date Recorded Concentrating, Remembering, or Making Decisions Difficulty Not on file 04/23/2023 Doing Errands Independently Difficulty Not on fi le 04/23/2023 Education Answer Date Recorded Help with school or training? Not on file Preferred Language Not on file 04/23/2023 Sex and Gender Information Value Date Recorded Sex Assigned at Not on file Legal Sex Male 8:04 AM EST Gender Identity Not on file Sexual Orientation Not on file Last Filed Vital Signs Vital Sign Reading Time Taken Comments Blood Pressure 124/75 05/28/2018 8:18 AM EST Pulse 76 05/28/2018 8:18 AM EST Temperature 36.5 C (97.7 F) 05/28/2018 8:18 AM EST Respiratory Rate 16 05/28/2018 8:18 AM EST Oxygen Saturation 97% 05/28/2018 8:18 AM EST Inhaled Oxygen Concentration - - Weight 88.5 kg (195 lb) 05/28/2018 8:18 AM EST Height 182.9 cm (6') 05/28/2018 8:18 AM EST Body Mass Index 26.45 05/28/2018 8:18 AM EST Plan of Treatment Health Maintenance Due Date Last Done Comments ANNUAL PHYSICAL 1970 HEPATITIS C SCREENING 1970 TDAP/TD VACCINES (1 - Tdap) 1989 COLOGUARD 2015 COLON CANCER SCREENING 5 YEA R SIGMOIDOSCOPY 2015 COLONOSCOPY [address] CANCER SCREENING 2015 CT COLONOGRAPHY 2015 FECAL OCCULT BLOOD TEST 2015 FIT Testing (1 year) 2015 Pneumococcal Vaccine 50+ (1 of 1 - PCV) 2020 ZOSTER VACCINE (1 of 2) 2020 COVID-19 Vaccine (1 - season) 2024 INFLUENZA VACCINE 04/12/2025 06/25/2016, 04/14/2013 HEMOGLOBIN A1C Discontinued 02/17/2018 Care Teams Photocopying Equipment Repairer Relationship Specialty Start Date End Date Shan Carroll MD [address] [place] [address] PCP - General Family Medicine 05/28/18
--- OUTSIDE RECORDS SUMMARY | 2025-02-07 15:38 | XMS_ITS | Encounter Summary ---
Author Organization [facility] Address [address] [place] [address] Care Team Providers Care Wound Care Specialist Name Role Phone Kimmie Baca NP Primary Care Provider [phone] Shadia Vasques RN Unavailable [phone] Reason for Visit * Reason Comments Medications Refill Encounter Details Date Type Department Care Team (Late st Contact Info) Description 01/18/2019 Refill [facility] Physicians - Primary Care, [place] [address] [place] [address] Jeri Barron NP Medications Refill Social History [...] encounter Miscellaneous Notes * Telephone Encounter - Radha Merida RMA - 01/18/2019 1:52 PM EDT Requested Prescriptions Pending Prescriptions Disp Refills ??? hydrOXYzine Pamoate (VISTARIL) 50 mg capsule [Pharmacy Med Name: HYDROXYZINE KAYLA 50 MG CAP] 90 Cap 1 Sig: TAKE 1 CAPSULE BY MOUTH EVERYDAY AT BEDTIME Last appt- 08-30-18 appt type- CK UP Next appt- 02-28-19 appt type- PE Pending labs on file- Yes documented in this encounter Plan of Treatment Not on file documented as of this encounter Visit Diagnoses Diagnosis Anxiety- Primary Anxiety state, unspecified documented in this encounter Additional Health Concerns Assessment Noted Time PHQ-9 Depression Total Score: 1 08/30/19 19 11:24 AM EST documented as of this encounter Care Teams Wound Care Specialist Relationship Specialty Start Date End Date Kimmie Baca [facility] [address] [facility] [place] [address] [place] [address] PCP - General Nurse Practitioner, Family 10/13/18 03/19/19 Shadia Vasques, RN [address] [place], [place] [address] Mixing Roll Operator 01/07/19 03/20/19 [facility]) Consulting Physician Optometry 02/22/19 documented as of this encounter
--- OUTSIDE RECORDS SUMMARY | 2025-02-07 15:38 | XMS_ITS | Encounter Summary ---
Author Organization [facility] Address [address] [place] [address] Care Team Providers Care Cook Helper Vegetable Name Role Phone Unavailable Primary Care Provider Unavailabl e Reason for Visit * Reason Onset Date Comments Medications Refill Medications Refill 06/01/2019 Encounter Details Date Type Department Care Team (Late st Contact Info) Description 05/23/2019 Refill [facility] Physicians - Primary Care, [place] [address] [place] [id number] Jeri Barron NP Medications Refill; Medications Refill Social History Tobacco Use Types [...] encounter Miscellaneous Notes * Telephone Encounter - Jeri Barron NP - 06/01/2019 3:07 PM EST PCP removed on 03/21/19 as pt no showed apt with [facility] and did not attempt to establish with anyone here He was due in february for a check up and has failed to make an apt. Diabetics must bee seen at Minimum every 6 months. He has failed to do so He has an apt with [facility] in June We will no longer refill any of his meds * Telephone Encounter - Tati Hester - 06/01/2019 10:56 AM EST im not seeing that he transferred out? The letter that was sent was a warning letter not a dismissal. Did I miss something? He is calling requesting this refill as he is out and leaving town tomorrow * Telephone Encounter - Jeri Barron NP - 05/24/2019 5:52 PM EST No longer under our care * Telephone Encounter - Divya Cm RMA - 05/23/2019 12:03 PM EST Requested Prescriptions Pending Prescriptions Disp Refills ??? metFORMIN (GLUCOPHAGE-XR) 750 mg XR tablet [Pharmacy Med Name: METFORMIN HCL ER 750 MG TABLET] 180 Tab 1 Sig: TAKE 1 TABLET BY MOUTH TWICE A DAY Last appt and type- 2 for check up Next appt and type- Not scheduled Pending labs on file- Yes HAS ALOT OF NO SHOWS documented in this encounter Plan of Treatment Not on file documented as of this encounter Visit Diagnoses Diagnosis Uncontrolled type 2 diabetes mellitus without complication, without long-term current use of insulin documented in this encounter Additional Health Concerns Assessment Noted Time PHQ-9 Depression Total Score: 1 08/30/19 19 11:24 AM EST documented as of this encounter Care Teams Cook Helper Vegetable Relationship Specialty Start Date End Date [facility]) Consulting Physician Optometry 02/22/19 documented as of this encounter
--- OUTSIDE RECORDS SUMMARY | 2025-02-07 15:38 | XMS_ITS | Encounter Summary ---
Author Organization [facility] Address [address] [place] [address] Care Team Providers Care Command Post Craftsman Name Role Phone Unavailable Primary Care Provider Unavailabl e Reason for Visit * Reason Comments Medications Refill Encounter Details Date Type Department Care Team (Late st Contact Info) Description 04/01/2019 Refill [facility] Physicians - Primary Care, [place] [address] [place] [address] Kimmie Baca NP [address] [place] [address] Medications Refill Social History Tobacco Use Types [...] Telephone Encounter - Kimmie Baca NP - 04/01/2019 1:37 PM EDT Pt has appt with new PCP 06/2019 Will RX through this time, but no additional RFs Please let him know * Telephone Encounter - Lesa KebedeMIRI - 04/01/2019 11:37 AM EDT He has never established with another PCP after Dr. Carroll left. Shadia Vasques has some notes on this patient. documented in this encounter Plan of Treatment [...] documented as of this encounter Care Teams Command Post Craftsman Relationship Specialty Start Date End Date [facility]) Consulting Physician Optometry 02/22/19 documented as of this encounter
--- OUTSIDE RECORDS SUMMARY | 2025-02-07 15:38 | XMS_ITS | Encounter Summary ---
Author Organization [facility] Address [address] [place], [place] [address] Care Team Providers Care Neuropsychology Division Chief Name Role Phone Unavailable Primary Care Provider Unavailabl e Reason for Visit * Reason Comments Medications Refill Encounter Details Date Type Department Care Team (Late st Contact Info) Description 07/16/2019 Refill [facility] Physicians - Primary Care, [place] [address] [place] [address] Kimmie Baca NP [address] [place] [address] [place] [address] Medications Refill Social History Tobacco Use Types [...] as of this encounter Visit Diagnoses Diagnosis Anxiety Anxiety state, unspecified documented in this encounter Additional Health Concerns Assessment Noted Time PHQ-9 Depression Total Score: 1 08/30/19 19 11:24 AM EST documented as of this encounter Care Teams Neuropsychology Division Chief Relationship Specialty Start Date End Date [facility] Consulting Physician Optometry 02/22/19 documented as of this encounter
--- OUTSIDE RECORDS SUMMARY | 2025-02-07 15:38 | XMS_ITS | Encounter Summary ---
Author Organization [facility] Address [address] [place] [address] Care Team Providers Care Salesperson Household Appliances Name Role Phone Kimmie Baca NP Primary Care Provider [phone] Shadia Vasques RN Unavailable [phone] Reason for Visit * Reason Comments Medications Refill Encounter Details Date Type Department Care Team (Late st Contact Info) Description 01/19/2019 Refill [facility] Physicians - Primary Care, [place] [address] [place] [address] Kimmie Baca NP [address] [facility] [place] [address] Medications Refill Social History Tobacco Use Types [...] Notes * Telephone Encounter - Radha Merida LENNOX - 01/19/2019 3:08 PM EDT Requested Prescriptions Pending Prescriptions Disp [...] documented as of this encounter Care Teams Salesperson Household Appliances Relationship Specialty Start Date End Date Kimmie Baca NP [address] [place] [address] [place] [address] PCP - General Nurse Practitioner, Family 10/13/18 03/19/19 Shadia Vasques, RN [address] [place] [address] Powder Line Repairer 01/07/19 03/20/19 [facility]) Consulting Physician Optometry 02/22/19 documented as of this encounter
--- OUTSIDE RECORDS SUMMARY | 2025-02-07 15:38 | XMS_ITS | Clinical Summary ---
Author Organization [facility] Address [address] [place] [address] Phone Care Team Providers Care Awning Hanger Helper Name Role Phone Geovanni Ayon MD Primary Care Provider [phone] Allergies No known active allergies Medications fexofenadine (JUANA) 180 mg Oral Tablet TAKE 1 TABLET BY MOUTH EVERY DAY 5 Active finasteride (PROSCAR) 5 mg Oral Tablet Take 5 mg by mouth daily. Active Coenzyme Q10 100 mg Oral Capsule Take by mouth. Activ e fluticasone propionate (FLONASE) 50 mcg/actuation Nasl [place], Suspension by Nasal route daily. Active triamcinolone (KENALOG) 0.1 % Top Ointment Apply topically 2 times daily. 80 g 2 2 Active omeprazole (PRILOSEC) 40 mg Oral Capsule, Delayed Release(E.C.)In dications:Epiga stric abdominal pain TAKE 1 CAPSULE BY MOUTH EVERY DAY 90 Capsule 3 3 Active tamsulosin (FLOMAX) 0.4 mg Oral Capsule Take 1 Capsule by mouth once daily. 30 Capsule 4 Active FARXIGA 10 mg Oral Tablet Take 1 Tablet by mouth once daily. 30 Tablet 4 Active vilazodone (VIIBRYD) 40 mg Oral Tablet TAKE 1 TABLET BY MOUTH EVERY DAY 90 Tablet 1 4 Active metFORMIN (GLUCOPHAGE XR) 750 mg Oral ER 24 hr tabletIndicatio ns:Well controlled type 2 diabetes mellitus (HCC) Take 2 Tablets by mouth once daily. 180 Tablet 4 Active LEVOthyroxine (SYNTHROID) 100 mcg Oral Tablet Take 1 Tablet by mouth once daily. 90 Tablet 4 Active ipratropium (ATROVENT) 21 mcg (0.03 %) Nasl [place], Non-AerosolIndi cations:Acute bacterial sinusitis 2 SPRAYS BY NASAL ROUTE 3 TIMES DAILY 30 mL 2 4 Active atorvastatin (LIPITOR) 20 mg Oral TabletIndicatio ns:Dyslipidemia TAKE 1 TABLET BY MOUTH EVERY DAY 90 Tablet 4 Active Active Problems Problem Noted Date Diagnosed Date Screening for depression 06/29/2019 Overview (06/29/2019): In the past two weeks, how often have you felt down, depressed, or hopeless? None Have you felt little interest or pleasure in doing things? no Alcohol screening 06/29/2019 Overview (06/29/2019): Hx of alcoholism. Yee since 2010. Benign prostatic hyperplasia without lower urinary tract symptoms 06/29/2019 Overview (06/29/2019): Denies Dribbling, hesitation, nocturia, and dysuria, on meds. Stable continue same. Hypothyroidism (acquired) 06/29/2019 Overview (06/29/2019): Hypothyroid: Denies constipation, diarrhea, palpitations, depression, no skin or hair changes. Stable continue the same. Major depressive disorder, recurrent episode, mi ld 06/29/2019 Overview (06/29/2019): Lifetime hx of depression. Viibryd helps. Denies HSI, AVH, anhedonia, despair Stable continue same. Well controlled type 2 diabetes mellitus 019 Overview (07/10/2023): FSBS typically less than 150. No open wounds. Iris done 04/02/22. No low blood sugars. No paresthesias. Assessment & Plan (07/10/2023 11:18 AM EST): Discussed multiple medication options with patient in office today. Patient elected for discontinuing the Trulicity and replacing it with Mounjaro. Mounjaro symptoms today Can follow-up in about 3 months to see how these changes have done and further titration of Mounjaro dose if needed at that time Assessment & Plan (03/05/2023 10:08 AM EDT): -increases risk of cardiovascular disease Dyslipidemia 06/29/2019 Overview (04/02/2022): On statin, no issues. Alcoholism Overview (06/29/2019): Sober since 2010 Immunizations Immunization Administration Dates Next Due Influenza Seasonal Injectable PF 06/25/2016 Td (Adult), Absorbed 09/16/1996 Zoster 07/11/2020 Zoster Recombinant 07/16/2021 Surgical History Surgery Date Site/Laterality Comments ROTATOR CUFF REPAIR Medical History Medical History Date Comments Thyroid disease Anxiety Depression Alcoholism (HCC) Family History * Patient is adopted Medical History Relation Name Comments Colon Cancer Neg Hx Prostate Cancer Neg Hx Social History Tobacco Use Types Packs/Day Years Used Date Smoking Tobacco: Never Smokeless Tobacco: Former Chew Quit: 07/31/1998 Tobacco Cessation:Counseling Given: Not Answered Comments:Former chewer Alcohol Use Standard Drinks/Week Comments Not Currently 0 (1 standard drink = 0.6 oz pur e alcohol) AUDIT-C Answer Date Recorded Frequency of Alcohol Consumption Never 06/29/2019 Average Number of Drinks Not asked 019 Frequency of Binge Drinking Not asked 06/12 Sex and Gender Information Value Date Recorded Sex Assigned at Not on file Legal Sex Male 5:12 PM EDT Gender Identity Not on file Sexual Orientation Not on file Obstetrics History Last Filed Vital Signs Vital Sign Reading Time Taken Comments Blood Pressure 116/80 07/10/2023 9:33 AM EST Pulse 83 07/10/2023 9:33 AM EST Temperature 36.6 C (97.8 F) 07/10/2023 9:33 AM EST Respiratory Rate 18 07/10/2023 9:33 AM EST Oxygen Saturation 98% 07/10/2023 9:33 AM EST Inhaled Oxygen Concentration - - Weight 89.8 kg (198 lb) 07/10/2023 9:33 AM EST Height 182.9 cm (6') 04/13/2023 9:40 AM EDT Body Mass Index 26.85 04/13/2023 9:40 AM EDT Plan of Treatment Health Maintenance Due Date Last Done Comments Hepatitis B Vaccine (1 of 3 - 19+ 3-dose series) 1989 Pneumococcal Vaccine 50+ (1 of 2 - PCV) 1989 DTaP/TDaP/Td (1 - Tdap) 09/17/1996 09/16/1996 Cologuard 2015 FIT 2015 Sigmoidoscopy 2015 Virtual Colonography 2015 Zoster (3 of 3) 09/10/2021 07/16/2021, 07/11/2020 Annual Wellness Exam 04/02/2023 04/02/2022 Kidney Health: uACR 04/02/2023 04/02/2022, 9 Lipids 04/02/2023 04/02/2022, 07/08/2019 Hemoglobin A1c 01/09/2024 07/10/2023, 09/11, 04/02/2022, Additional history exists Kidney Health: eGFR 01/30/2024 01/29/2023, 10/01/2022, 04/02/2022, Additional history exists COVID-19 Vaccine ( season) 2024 09/05/2020, 08/02/2020 Diabetic Eye Exam 04/03/2024 04/03/2022 Influenza Vaccine (#1) 2025 06/25/2016 Colon Cancer Screening 07/11/2032 Colonoscopy 07/11/2032 07/11/2022 Meningococcal B Vaccine Aged Out No l onger eligible based on patient's age to complete this topic Goals Goal Patient Goal Type Associated Problems Recent Progress Patient-Stated? Author Blood Pressure < 140/90 Blood Pressure 116/80(2022 9:33 AM EST) No Geovanni Ayon MD Maintain a healthy diet, exercise regularly and maintain an ideal body weight General No Lorena Suarez CMA BMI (Calculated) < 30 General 27(04/13/2023 9:40 AM EDT) No Geovanni Ayon MD Stay Tobacco Free Lifestyle No Lorena Suarez CMA HEMOGLOBIN A1C < 7.0 Result Component 6.4( 10:07 AM EST) No Geovanni Ayon MD Procedures Procedure Name Priority Date/Time Associated Diagnosis Comments POCT GLYCATED HEMOGLOBIN, TOTAL Routine 07/10/2023 10:07 AM EST Well controlled type 2 diabetes mellitus (HCC) COMPREHENSIVE METABOLIC PANEL Routine 01/29/2023 12:03 PM EDT Epigastric abdominal pain [facility]ED COLONOSCOPY Routine 07/11/2022 10:0 0 AM EST Screening for colon cancer LIPID PANEL REFLEX Routine 04/02/2022 10 :19 AM EDT Dyslipidemia MICROALBUMIN/CREATININ E RATIO URINE Routine 06/29/2019 8:53 AM EST Well controlled type 2 diabetes mellitus (HCC) from Last 3 Months or Most Recently Relevant to Health Maintenance Results * (ABNORMAL) POCT GLYCATED HEMOGLOBIN, TOTAL (07/10/2023 10:07 AM EST) Hemoglobin A1C 6.4(A) 4 - 6 % SEP OFFICE Lot Number SEP OFFICE Expiration Date SEP OFFICE SeriAl # SEP OFFICE 07/10/2023 10:0 7 AM EST Philomena Nieves DO POINT OF CARE TEST ORDERABLE S Final Result SEP OFFICE * (ABNORMAL) COMPREHENSIVE METABOLIC PANEL (01/29/2023 12:03 PM EDT) Sodium 140 136 - 145 mmol/L 01/29/2023 11:04 PM EDT [facility] Potassium 4.5 3.5 - 5.0 mmol/L 01/29/2023 11:04 PM EDT [facility] Chloride 105 98 - 107 mmol/L 01/29/2023 11:04 PM EDT [facility] Total CO2 21(L) 22 - 29 mmol/L 01/29/2023 11:04 PM EDT [facility] Anion Gap 14 7 - 16 mmol/L 01/29/2023 11:04 PM EDT [facility] Calcium 10.1 8.6 - 10.4 mg/dL 01/29/2023 11:04 PM EDT [facility] Glucose Lvl 93 74 - 100 mg/dL 01/29/2023 11:04 PM EDT [facility] BUN 19 6 - 20 mg/dL 01/29/2023 11:04 PM EDT [facility] Creatinine 1.21 0.67 - 1.30 mg/dL 01/29/2023 11:04 PM EDT [facility] Albumin 4.5 3.5 - 5.2 gm/dL 01/29/2023 11:04 PM EDT [facility] Total Protein 7.4 6.4 - 8.3 gm/dL 01/29/2023 11:04 PM EDT [facility] Bili Total 0.3 0.2 - 1.4 mg/dL 01/29/2023 11:04 PM EDT [facility] ALT 24 <=41 U/L 01/29/2023 11:04 PM EDT [facility] AST 22 <=40 U/L 01/29/2023 11:04 PM EDT [facility] Alk Phos 101 40 - 129 U/L 01/29/2023 11:04 PM EDT [facility] eGFR (CKD-EPIcr 2020) 72 >=60 mL/min/1.7 3 m2 01/29/2023 11:04 PM EDT [facility] Comment:Estimated GFR was ca lculated using the CKD-EPIcr (2020) equation refit without race. The equation is recommended by the National Kidney Foundation - Citizen Of [place] Society of Nephrology Task Force. Blood VENOUS BLOOD / Unknown Venipuncture / Unknown 01/29/2023 12:03 PM EDT 01/29/2023 12:03 PM EDT us Philomena Nieves DO CHEMISTRY ORDERABLES Final R esult Performing Organization Address [facility] Co de Phone Number [facility] [address] [facility] [address] [place] [address] [facility] [address] [place] [phone] * GMED COLONOSCOPY (07/11/2022 10:00 AM EST) 07/11/2022 10:0 0 AM EST Impressions [facility] - 07/11/2022 11:06 AM EST Polyp (5 mm) in the rectum. (Polypectomy). Plan: Colonoscopy in 5 years Follow up pathology results. High Fiber Diet. Soluble fiber is recommended for diarrhea and insoluble fiber is recommended for constipation. This section is an excerpt of the full report. us Aneudy Garvin III, MD GI PROCEDURE ORDERABLES Fi nal Result Performing Organization Address [facility] [place] [address] * (ABNORMAL) LIPID PANEL REFLEX (04/02/2022 10:19 AM EDT) Cholesterol 126 <200 mg/dL 04/02/2022 4:30 PM EDT [facility] Comment: < 200 Desirable 200 - 239 Borderline High >= 240 High Triglyceride 96 <150 mg/dL 04/02/2022 4:30 PM EDT [facility] Comment: < 150 Normal 150 - 199 Borderline High 200 - 499 High >= 500 Very High HDL 32(L) >=40 mg/dL 04/02/2022 4:30 PM EDT [facility] Comment: > 60 Optimal 40 - 60 Acceptable < 40 Low LDL Calculated 76 <100 mg/dL 04/02/2022 4:30 PM EDT [facility] Non-HDL-C Calculated 94 <=129 mg/dL 04/02/2022 4:30 PM EDT [facility] Comment: <130 Desirable 130-159 Above Desirable 160-189 Borderline High 190-219 High >= 220 Very High Fasting Specimen? Yes None 022 4:30 PM EDT [facility] Blood VENOUS BLOOD / Unknown Venipuncture / Unknown 04/02/2022 10:19 AM EDT 04/02/2022 10:19 AM EDT us Geovanni Ayon MD CHEMISTRY ORDERABLES Final Result Performing Organization Address [facility] Co de Phone Number [facility] [address] [facility] , [place] [phone] [facility] [address] [place] [address] * MICROALBUMIN/CREATININE RATIO URINE (06/29/2019 8:53 AM EST) Urine Microalb 35.4 mg/L 06/29/2019 4:26 PM EST [facility] Urine Creatinine 224.8 mg/dL 06/29/2019 4:26 PM EST [facility] Ur Microalb/Creat 16 0 - 30 mg/g 06/29/2019 4:26 PM EST [facility] Urine STRUCTURE OF URINARY TRACT PROPER / Unknown 06/29/2019 8:53 AM EST 06/29/2019 8:53 AM EST us Geovanni Ayon MD URINE ORDERABLES Final Resu lt Performing Organization Address City/[facility]/ZIP Co de Phone Number [facility] [address] [facility] , [place] [address] from Last 3 Months or Most Recently Relevant to Health Maintenance Insurance [employer] PPO ANTHEM PPO ANTHEM PPO Care Teams Awning Hanger Helper Relationship Specialty Start Date End Date Ge[place] [address] [address] [place] [address] PCP - General Family Medicine 06/29/19
== END 2025-02-06 23:59 | disposition home or self-care (01) ==
LOC: LAB.DROPOF 02-07 15:35
PROVIDERS: PCP Nurse Practitioner; Visit Provider Nurse Practitioner
DX: E78.5 Hyperlipidemia, unspecified (principal); E11.9 Type 2 diabetes mellitus without complications; E03.9 Hypothyroidism, unspecified; R30.0 Dysuria
CPT/HCPCS: 80053; 80061; 81001; 83036; 84439; 84443

== ENCOUNTER 2025-05-24 08:29 | Outpatient (CLI) | payer BC, SELFPAY ==
--- OUTSIDE RECORDS SUMMARY | 2025-05-24 08:38 | XMS_ITS | Encounter Summary ---
Author Organization [facility] Address [address] [place] [address] Care Team Providers Care Cartridge Loading Operator Name Role Phone Shan Carroll MD Primary Care Provider [phone] Kimmie Baca NP Primary Care Provider [phone] Shadia Vasques RN Unavailable [phone] Reason for Visit * Reason Onset Date Comments Scheduling 04/27/2018 Encounter Details Date Type Department Care Team (Late st Contact Info) Description 04/27/2018 Telephone [facility] - Diabetes & Endocrine Center, [address] [place] [address] Gemini Alfred [address] [place] [address] Scheduling Social History Tobacco Use Types [...] on filedocumented in this encounter Care Teams Cartridge Loading Operator Relationship Specialty Start Date End Date Shan Carroll MD PCP - General Family Medicine 10/17/11 10/12/18 Kimmie Baca NP [address] [place] [address] [place] [address] PCP - General Nurse Practitioner, Family 10/13/18 03/19/19 Shadia Vasques, RN [address] [place], [place] [id number] Trout Farmer 01/07/19 03/20/19 [facility]) Consulting Physician Optometry 02/22/19 documented as of this encounter
--- OUTSIDE RECORDS SUMMARY | 2025-05-24 08:38 | XMS_ITS | Clinical Summary ---
Author Organization [facility] Address [address] [place] [address] Care Team Providers Care Incident Manager Name Role Phone Shan [place] MD Primary Care Provider [phone] Allergies No known active allergies Medications METFORMIN [...] 2020 ZOSTER VACCINE (1 of 2) 2020 INFLUENZA VACCINE 02/10/2025 06/25/2016, 04/14/2013 HEMOGLOBIN A1C Discontinued 02/17/2018 Care Teams Incident Manager Relationship Specialty Start Date End Date Shan Carroll MD [address] [place] [address] PCP - General Family Medicine 05/28/18
--- OUTSIDE RECORDS SUMMARY | 2025-05-24 08:38 | XMS_ITS | Encounter Summary ---
Author Organization [facility] Address [address] [place] [address] Care Team Providers Care Distance Learning Unit Leader Name Role Phone Kimmie Baca NP Primary Care Provider [phone] Shadia Vasques RN Unavailable [phone] Reason for Visit * Reason Comments Medications Refill Encounter Details Date Type Department Care Team (Late st Contact Info) Description 01/02/2019 Refill [facility] Physicians - Primary Care, [place] [address] [place] [address] Jeri Barron NP Medications Refill Social History [...] Notes * Telephone Encounter - Divya Cm, [facility] - 01/03/2019 11:31 AM EDT Requested [...] documented as of this encounter Care Teams Distance Learning Unit Leader Relationship Specialty Start Date End Date Kimmie Baca NP [address] [facility] [place] [address] PCP - General Nurse Practitioner, Family 10/13/18 03/19/19 Shadia Vasques, RN [address] [place], [place] [phone] Councillor [employer] 01/07/19 03/20/19 [facility]) Consulting Physician Optometry 02/22/19 documented as of this encounter
--- OUTSIDE RECORDS SUMMARY | 2025-05-24 08:38 | XMS_ITS | Encounter Summary ---
Author Organization [facility] Address [address] [place] [address] Care Team Providers Care Home Health Care Case Manager Name Role Phone Shan Carroll MD Primary Care Provider [phone] Kimmie Baca NP Primary Care Provider [phone] Shadia Vasques RN Unavailable [phone] Reason for Visit * Reason Onset Date Comments No Show Appt Follow-up 03/19/2018 No show f or diabetes education appt. lvm Encounter Details Date Type Department Care Team (Late st Contact Info) Description 03/19/2018 Telephone [facility] - Diabetes & Endocrine Center, [address] [place] [address] Mario [address] [place], [place] [id number] No Show Appt Follow-up (No show for [...] on filedocumented in this encounter Care Teams Home Health Care Case Manager Relationship Specialty Start Date End Date Shan Carroll MD PCP - General Family Medicine 10/17/11 10/12/18 Kimmie Baca NP [address] [facility] [place] [address] PCP - General Nurse Practitioner, Family 10/13/18 03/19/19 Shadia Vasques, RN [address] [place] [address] Galvanizing Pot Runner 01/07/19 03/20/19 [place] [facility]) Consulting Physician Optometry 02/22/19 documented as of this encounter
--- OUTSIDE RECORDS SUMMARY | 2025-05-24 08:38 | XMS_ITS | Encounter Summary ---
Author Organization [facility] Address [address] [place] [address] Care Team Providers Care Van Loader Name Role Phone Shan Carroll MD Primary Care Provider [phone] Kimmie Baca NP Primary Care Provider [phone] Shadia Vasques RN Unavailable [phone] Reason for Visit * Reason Onset Date Comments No Show Appt Follow-up 04/26/2018 No show X 3 for education appt, lvm Encounter Details Date Type Department Care Team (Late st Contact Info) Description 04/26/2018 Telephone [facility] - Diabetes [facility] Endocrine Center, [address] [place] [address] [address] Mario [address] [place], [place] [id number] No Show Appt Follow-up (No show X [...] on filedocumented in this encounter Care Teams Van Loader Relationship Specialty Start Date End Date Shan Carroll MD PCP - General Family Medicine 10/17/11 10/12/18 Kimmie Baca NP [address] [facility] [place] [address] PCP - General Nurse Practitioner, Family 10/13/18 03/19/19 Shadia Vasques, RN [address] [place] [address] Inspector Advanced [employer] 01/07/19 03/20/19 [facility]) Consulting Physician Optometry 02/22/19 documented as of this encounter
--- OUTSIDE RECORDS SUMMARY | 2025-05-24 08:38 | XMS_ITS | Encounter Summary ---
Author Organization [facility] Address [address] [place] [address] Care Team Providers Care Rivet Spinner Name Role Phone Shan Carroll MD Primary Care Provider [phone] Kimmie Baca NP Primary Care Provider [phone] Shadia Vasques RN Unavailable [phone] Reason for Visit * Reason Onset Date Comments No Show Appt Follow-up 04/09/2018 No show f or education appt. lvm to reschedule Encounter Details Date Type Department Care Team (Late st Contact Info) Description 04/09/2018 Telephone [facility] - Diabetes & Endocrine Center, [address] [place] [address] [address]is Mario [address] [place] [id number] No Show Appt Follow-up (No show for [...] on filedocumented in this encounter Care Teams Rivet Spinner Relationship Specialty Start Date End Date Shan Carroll MD PCP - General Family Medicine 10/17/11 10/12/18 Kimmie Baca NP [address] [facility] [place] [address] PCP - General Nurse Practitioner, Family 10/13/18 03/19/19 Shadia Vasques, RN [address] [place] [address] Heavy Truck Driver 01/07/19 03/20/19 [place] [facility]) Consulting Physician Optometry 02/22/19 documented as of this encounter
--- OUTSIDE RECORDS SUMMARY | 2025-05-24 08:38 | XMS_ITS | Encounter Summary ---
Author Organization [facility] Address [address] [place] [address] Care Team Providers Care Entry Manager Name Role Phone Kimmie Baca NP Primary Care Provider [phone] Shadia Vasques RN Unavailable [phone] Reason for Visit * Reason Comments Medications Refill Encounter Details Date Type Department Care Team (Late st Contact Info) Description 01/19/2019 Refill [facility] Physicians - Primary Care, [place] [address] [place] [address] Kimmie Baca NP [address] [facility] [place] [address] Medications Refill Social History Tobacco Use Types [...] documented as of this encounter Care Teams Entry Manager Relationship Specialty Start Date End Date Kimmie Baca NP [address] [place] [address] PCP - General Nurse Practitioner, Family 10/13/18 03/19/19 Shadia Vasques, RN [address] [place] [address] Tour Operator 01/07/19 03/20/19 [facility]) Consulting Physician Optometry 02/22/19 documented as of this encounter
--- OUTSIDE RECORDS SUMMARY | 2025-05-24 08:38 | XMS_ITS | Clinical Summary ---
Author Organization [facility] Address [address] [place] [address] Care Team Providers Care Finish Remover Name Role Phone Shan Carroll MD Primary Care Provider [phone] Source Comments This information has been disclosed [...] therelease of HIV test results or diagnoses. [id number] Allergies No known active allergies Medications [...] Active Active Problems No known active problems Encounters Date Type Department Care Team Description 05/16/2025 Orders Only [facility] [address] [place] [address] Geoff Bell NP Neoplasm of uncertain behavior of skin (Primary Dx) from Last 3 Months Social History Tobacco Use Types Packs/Day Years Used Date Smoking Tobacco: Never Smokeless Tobacco: Former Quit: 04/23/1999 Sex and Gender Information Value Date Recorded Sex Assigned at Not on file Legal Sex Male 4:16 PM EST Gender Identity Not on file Sexual Orientation Not on file Plan of Treatment Not on file Procedures Procedure Name Priority Date/Time Associated Diagnosis Comments SKIN / NAIL BIOPSY Routine 05/11/2025 12 :00 AM EDT Neoplasm of uncertain behavior of skin from Last 3 Months Results * Skin / nail biopsy (05/11/2025 12:00 AM EDT) 05/11/2025 05/15/2025 Narrative [facility] - 05/11/2025 12:00 AM EDT CASE: [id number] PATIENT: NEFTALI ENAMORADO Clinical Impression: Angioma Site(s): L anterior vertex scalp CPT Code(s): 51672 X 1 Diagnosis: Angioma Microscopic Exam: The dermis reveals multiple dilated blood vessels. Gross Description: A specimen of skin was received measurin x 9 x 1 mm Final Diagnosis performed by SHALINI ALBERTS MD Electronically signed 05/16/2025 12:28:45 PM The Pathologist signing this report is located at [facility], [address] [place], [address], , CLIA ID: [id number] Geoff Bell NP DERM PROCEDURE ORDERABLES Fi nal Result [facility] from Last 3 Months Insurance BLUE OTHER Care Teams Finish Remover Relationship Specialty Start Date End Date Shan [place] [address] [address] PCP - General Family Medicine 04/23/16
--- OUTSIDE RECORDS SUMMARY | 2025-05-24 08:38 | XMS_ITS | Clinical Summary ---
Author Organization [facility] Address [address] [place] [address] Phone Care Team Providers Care Weather Strip Mechanic Name Role Phone Geovanni Ayon MD Primary Care Provider [phone] Allergies No known active allergies Medications fexofenadine (JUANA) 180 mg Oral Tablet TAKE 1 TABLET BY MOUTH EVERY DAY 5 Active finasteride (PROSCAR) 5 mg Oral Tablet Take 5 mg by mouth daily. Active Coenzyme Q10 100 mg Oral Capsule Take by mouth. Activ e fluticasone propionate (FLONASE) 50 mcg/actuation Nasl [place], Suspension by Nasal route daily. Active triamcinolone [...] ipratropium (ATROVENT) 21 mcg (0.03 %) Nasl [place], Non-AerosolIndi cations:Acute bacterial sinusitis 2 SPRAYS BY [...] Health Maintenance Due Date Last Done Comments Annual Wellness Exam 1973 Hepatitis B Vaccine (1 of 3 - 19+ 3-dose series) 1989 Pneumococcal Vaccine 50+ (1 of 2 - PCV) 1989 DTaP/TDaP/Td (1 - Tdap) 09/17/1996 09/16/1996 Cologuard 2015 FIT 2015 Sigmoidoscopy 2015 Virtual Colonography 2015 Kidney Health: uACR 06/29/2020 06/29/2019 Zoster (3 of 3) 09/10/2021 07/16/2021, 07/11/2020 Lipids 04/02/2023 04/02/2022, 06/13, 10/25/2015 Hemoglobin A1c 01/09/2024 07/10/2023, 09/11, 04/02/2022, Additional history exists Kidney Health: eGFR 01/30/2024 01/29/2023, 10/01/2022, 04/02/2022, Additional history exists Diabetic Eye Exam 04/03/2024 04/03/2022 COVID-19 Vaccine ( season) 2025 09/05/2020, 08/02/2020 Influenza Vaccine (#1) 2025 06/25/2016 Colon Cancer [...] Routine 04/02/2022 10 :19 AM EDT Dyslipidemia ALBUMIN/CREATININE RATIO, RANDOM URINE Routine 06/29/2019 8:53 AM EST Well [...] 11:04 PM EDT [facility] Total CO2 21(L) 22 - 29 mmol/L 01/29/2023 11:04 PM EDT [facility] Anion Gap 14 7 - 16 mmol/L 01/29/2023 11:04 PM EDT [facility] Calcium 10.1 8.6 - 10.4 mg/dL 01/29/2023 11:04 PM EDT [facility] Glucose Lvl 93 74 - 100 mg/dL 01/29/2023 11:04 PM EDT [facility] BUN 19 6 - 20 mg/dL 01/29/2023 11:04 PM EDT [facility] Creatinine 1.21 0.67 - 1.30 mg/dL 01/29/2023 11:04 PM EDT [facility] Albumin 4.5 3.5 - 5.2 gm/dL 01/29/2023 11:04 PM EDT [facility] Total Protein 7.4 6.4 - 8.3 gm/dL 01/29/2023 11:04 PM EDT [facility] Bili Total 0.3 0.2 - 1.4 mg/dL 01/29/2023 11:04 PM EDT [facility] ALT 24 <=41 U/L 01/29/2023 11:04 PM EDT [facility] AST 22 <=40 U/L 01/29/2023 11:04 PM EDT [facility] Alk Phos 101 40 - 129 U/L 01/29/2023 11:04 PM EDT [facility] eGFR (CKD-EPIcr 2020) 72 >=60 mL/min/1.7 3 m2 01/29/2023 11:04 PM EDT [facility] Comment:Estimated GFR was ca lculated using the CKD-EPIcr (2020) equation refit without race. The equation is recommended by the National Kidney Foundation - [place] Society of Nephrology Task Force. Blood VENOUS BLOOD / Unknown Venipuncture / Unknown 01/29/2023 12:03 PM EDT 01/29/2023 12:03 PM EDT us Philomena Nieves DO CHEMISTRY ORDERABLES Final R esult [facility] [address] [facility] , [address] [place] [id number] [facility] [address] [place] [address] * GMED COLONOSCOPY (07/11/2022 10:00 AM EST) 07/11/2022 10:0 0 AM EST Impressions [facility] - 07/11/2022 11:06 AM EST Polyp (5 mm) in the rectum. (Polypectomy). Plan: Colonoscopy in 5 years Follow up pathology results. High Fiber Diet. Soluble fiber is recommended for diarrhea and insoluble fiber is recommended for constipation. This section is an excerpt of the full report. us Aneudy Garvin III, MD GI PROCEDURE ORDERABLES Fi nal Result Performing Organization Address [facility] de Phone Number [address] [address] * (ABNORMAL) LIPID PANEL REFLEX (04/02/2022 10:19 AM EDT) Cholesterol 126 <200 mg/dL 04/02/2022 4:30 PM EDT [facility] [employer] Comment: < 200 Desirable 200 - 239 Borderline High >= 240 High Triglyceride 96 <150 mg/dL 04/02/2022 4:30 PM EDT [facility] [employer] Comment: < 150 Normal 150 - 199 Borderline High 200 - 499 High >= 500 Very High HDL 32(L) >=40 mg/dL 04/02/2022 4:30 PM EDT [facility] [employer] Comment: > 60 Optimal 40 - 60 Acceptable < 40 Low LDL Calculated 76 <100 mg/dL 04/02/2022 4:30 PM EDT [facility] [employer] Non-HDL-C Calculated 94 <=129 mg/dL 04/02/2022 4:30 PM EDT [facility] [employer] Comment: <130 Desirable 130-159 Above Desirable 160-189 Borderline High 190-219 High >= 220 Very High Fasting Specimen? Yes None 022 4:30 PM EDT [facility] Blood VENOUS BLOOD / Unknown Venipuncture / Unknown 04/02/2022 10:19 AM EDT 04/02/2022 10:19 AM EDT us Geovanni Ayon MD CHEMISTRY ORDERABLES Final Result Performing Organization Address [facility] Co de Phone Number [facility], [facility] [address] [facility] , [address] [place] [phone] [facility] 1 [place] [address] * MICROALBUMIN/CREATININE RATIO URINE (06/29/2019 8:53 AM EST) Urine Albumin 35.4 mg/L 06/29/2019 4:26 PM EST [facility] Urine Creatinine 224.8 mg/dL 06/29/2019 4:26 PM EST [facility] Ur Albumin/Creat Ratio 16 0 - 30 mg/g 06/29/2019 4:26 PM EST [facility] [employer] Urine STRUCTURE OF URINARY TRACT PROPER / Unknown 06/29/2019 8:53 AM EST 06/29/2019 8:53 AM EST us Geovanni Ayon MD URINE ORDERABLES Final Resu lt Performing Organization Address City/[facility] Co de Phone Number [facility], [facility] [address] [facility] , [place] [address] from Last 3 Months or Most Recently Relevant to Health Maintenance [place] [address] [address] ANTHEM PPO ANTHFELA PPO Care Teams Weather Strip Mechanic Relationship Specialty Start Date End Date Geovanni Ayon MD [address] [place] [address] PCP - General Family Medicine 06/29/19
--- OUTSIDE RECORDS SUMMARY | 2025-05-24 08:38 | XMS_ITS | Encounter Summary ---
Author Organization [facility] Address [address] [place], [place] [address] Care Team Providers Care Carpet Mechanic Name Role Phone Unavailable Primary Care Provider Unavailabl e Reason for Visit * Reason Comments Medications Refill Encounter Details Date Type Department Care Team (Late st Contact Info) Description 07/16/2019 Refill [facility] Physicians - Primary Care, [place] [address] [place] [address] Kimmie Baca NP [address] [place] [address] Medications Refill Social History Tobacco Use Types [...] documented as of this encounter Care Teams Carpet Mechanic Relationship Specialty Start Date End Date [facility] Consulting Physician Optometry 02/22/19 documented as of this encounter
--- OUTSIDE RECORDS SUMMARY | 2025-05-24 08:38 | XMS_ITS | Encounter Summary ---
Author Organization [facility] Address [address] [place] [address] Care Team Providers Care Boiler Welder Name Role Phone Shan Carroll MD Primary Care Provider [phone] Source Comments This information has been disclosed to you from confidential records protectfrom disclosure by state law. You shall make no further disclosure of thisinformation without the specific, written, and informed release of theindividual to whom it pertains, or as otherwise permitted by law. A generalauthorization for the release of medical or other information is not sufficientfor the purposes of the release of HIV test results or diagnoses. [id number] Health Encounter Details Date Type Department Care Team (Late st Contact Info) Description 05/16/2025 Orders Only [facility]ING [address] [place] [address] Geoff Bell, PLANT FACILITIES TECHNICIAN [address] [place], [place] [id number] Neoplasm of uncertain behavior of skin (Primary Dx) Social History Tobacco Use Types Packs/Day Years Used Date Smoking Tobacco: Never Smokeless Tobacco: Former Quit: 04/23/1999 Sex and Gender Information Value Date Recorded Sex Assigned at Not on file Legal Sex Male 4:16 PM EST Gender Identity Not on file Sexual Orientation Not on file documented as of this encounter Plan of Treatment Not on file documented as of this encounter Procedures Procedure Name Priority Date/Time Associated Diagnosis Comments SKIN / NAIL BIOPSY Routine 05/11/2025 12 :00 AM EDT Neoplasm of uncertain behavior of skin documented in this encounter Results * Skin / nail biopsy (05/11/2025 12:00 AM EDT) 05/11/2025 05/15/2025 Narrative [facility] - 05/11/2025 12:00 AM EDT CASE: [id number] PATIENT: NEFTALI ENAMORADO Clinical Impression: Angioma Site(s): L anterior vertex scalp CPT Code(s): 14473 X 1 Diagnosis: Angioma Microscopic Exam: The dermis reveals multiple dilated blood vessels. Gross Description: A specimen of skin was received measurin x 9 x 1 mm Final Diagnosis performed by SHALINI ALBERTS MD Electronically signed 05/16/2025 12:28:45 PM The Pathologist signing this report is located at [facility], [address] [place] [address], [address], , CLIA ID: [id number] us Geoff Bell PLANT FACILITIES TECHNICIAN DERM PROCEDURE ORDERABLES Fi nal Result VAMSHIPATH documented in this encounter Visit Diagnoses Diagnosis Neoplasm of uncertain behavior of skin- Primary documented in this encounter Care Teams Boiler Welder Relationship Specialty Start Date End Date Shan Carroll MD [address] [place] [address] PCP - General Family Medicine 04/23/16 documented as of this encounter
--- OUTSIDE RECORDS SUMMARY | 2025-05-24 08:38 | XMS_ITS | Encounter Summary ---
Author Organization [facility] Address [address] [place] [address] Care Team Providers Care Curator Of Collections Name Role Phone Kimmie Baca NP Primary Care Provider [phone] Shadia Vasques RN Unavailable [phone] Reason for Visit * Reason Comments Medications Refill Encounter Details Date Type Department Care Team (Late st Contact Info) Description 01/18/2019 Refill [facility] Physicians - Primary Care, [place] [address] [place] [address] Jeri Barron NP Medications Refill Social History [...] documented as of this encounter Care Teams Curator Of Collections Relationship Specialty Start Date End Date Kimmie Baca NP [address] [facility] [place] [address] PCP - General Nurse Practitioner, Family 10/13/18 03/19/19 Shadia Vasques, RN [address] [place], [place] [address] Haul Cane Brakeman 01/07/19 03/20/19 [facility]) Consulting Physician Optometry 02/22/19 documented as of this encounter
--- OUTSIDE RECORDS SUMMARY | 2025-05-24 08:38 | XMS_ITS | Encounter Summary ---
Author Organization [facility] Address [address] [place] [address] Care Team Providers Care Asphalt Mixer Name Role Phone Unavailable Primary Care Provider Unavailabl e Reason for Visit * Reason Onset Date Comments Medications Refill Medications Refill 06/01/2019 Encounter Details Date Type Department Care Team (Late st Contact Info) Description 05/23/2019 Refill [facility] Physicians - Primary Care, [place] [address] [place] [id number] Jeri Barron NP Medications Refill; Medications Refill [...] documented as of this encounter Care Teams Asphalt Mixer Relationship Specialty Start Date End Date [facility]) Consulting Physician Optometry 02/22/19 documented as of this encounter
--- OUTSIDE RECORDS SUMMARY | 2025-05-24 08:38 | XMS_ITS | Encounter Summary ---
Author Organization [facility] Address [address] [place] [address] Care Team Providers Care Health And Human Performance Professor Name Role Phone Unavailable Primary Care Provider Unavailabl e Reason for Visit * Reason Comments Medications Refill Encounter Details Date Type Department Care Team (Late st Contact Info) Description 04/01/2019 Refill [facility] Physicians - Primary Care, [place] [address] [place] [address] Kimmie Baca NP [address] [place] [address] [place] [address] Medications Refill Social History Tobacco Use Types [...] documented as of this encounter Care Teams Health And Human Performance Professor Relationship Specialty Start Date End Date [facility]) Consulting Physician Optometry 02/22/19 documented as of this encounter
--- OUTSIDE RECORDS SUMMARY | 2025-05-24 08:38 | XMS_ITS | Clinical Summary ---
Author Organization [facility] Address [address] [place] [address] Care Team Providers Care Excel Developer Name Role Phone Unavailable Primary Care Provider Unavailabl e Allergies Active Allergy Reactions Criticality Noted Date Comments Aripiprazole Shortness Of Breath,Nausea Only Medications ALLERGY RELIEF, FEXOFENADINE, 180 mg tablet TAKE 1 TABLET BY MOUTH EVERY DAY 30 Tab 3 5 Active DYMISTA 137-50 mcg/spray [place], Non-AerosolIndic ations:Benign prostatic hyperplasia, unspecified whether lower [...] 1970 Tetanus Vaccination (Every 10 Years) 1988 Lipid Monitoring 10/24/2016 10/25/2015, 02/2014, 08/20/2012 Pneumococcal Vaccine: 50+ Ye ars (1 of 1 - PCV) 2020 Zoster-RZV(Shingrix) (1 of 2) 2020 Depression Screening 07/13/2024 08/30/2018 COVID-19 Vaccine (1 - 2024-2 6 season) 2025 Influenza Vaccination (#1) 2025 06/25/2016, Lipid Screening Discontinued 10/25/2015, 02/2014, 08/20/2012 Influenza Vaccination (Yearly) Discontinued 06/25/2016 , 04/14/2013 Procedures Procedure Name Priority Date/Time Associated Diagnosis Comments LIPID PROFILE Routine 10/25/2015 3:28 PM EDT Acquired hypothyroidism from Last 3 Months or Most Recently Relevant to Health Maintenance Results * (ABNORMAL) LIPID PROFILE (10/25/2015 3:28 PM EDT) Chol/HDL Ratio 4.5 0 - 5 [facility] Cholesterol 200(H) 125 - 199 mg/dL [facility] Comment: TOTAL CHOLESTEROL INTERPRETATION: Less than 200 mg/dL Desireable 200-239 mg/dL Borderline Greater or Equal to 240 mg/dL High LDL Calculated 132(H) 0 - 100 mg/dL [facility] Comment: LDL CHOLESTEROL INTERPRETATION: Less than 100 mg/dL Optimal 100-129 mg/dL Near optimal/above optimal 130-159 mg/dL Borderline High 160-189 mg/dL High Greater or Equal to 190 mg/dL Very High HDL 44 40 - 180 mg/dL [facility] Comment: HDL CHOLESTEROL INTERPRETATION: Less than 40 mg/dL Low Greater than 60 mg/dL Desirable Triglycerides 122 0 - 150 mg/dL [facility] Comment: TOTAL TRIGLYCERIDE INTERPRETATION: Less than 150 mg/dL Normal 150-199 mg/dL Borderline HIgh 200-499 mg/dL High Greater or Equal to 500 mg/dL Very High Plasma 10/25/2015 3:28 PM EDT 10/25/2015 7:49 PM EDT Narrative [facility] - 10/25/2015 8:17 PM EDT Has the patient fasted?->Yes us Shan Carroll MD CHEMISTRY ORDERABLES Final Res ult [facility] [address] from Last 3 Months or Most Recently Relevant to Health Maintenance Insurance ANTH Care Teams Excel Developer Relationship Specialty Start Date End Date [facility]) Consulting Physician Optometry 02/22/19
--- OUTSIDE RECORDS SUMMARY | 2025-05-24 08:38 | XMS_ITS | Encounter Summary ---
Author Organization [facility] Address [address] [place] [address] Care Team Providers Care Substation Manager Name Role Phone Unavailable Primary Care Provider Unavailabl e Reason for Visit * Reason Comments Medications Refill Encounter Details Date Type Department Care Team (Late st Contact Info) Description 08/17/2019 Refill [facility] Physicians - Primary Care, [place] [address] [place] [address] Kimmie Baca NP [address] [place] [place] [address] Medications Refill Social History Tobacco Use Types [...] documented as of this encounter Care Teams Substation Manager Relationship Specialty Start Date End Date [facility]) Consulting Physician Optometry 02/22/19 documented as of this encounter
--- NOTE | 2025-05-24 08:43 | ECG_ITS ---
APPROVED REPORT Exam: Resting ECG HR:68 bpm ECG Measurements Heart Rate 68 AXES NH 165 P 34 QRSd 96 QRS 89 QT 374 T 42 QTc 391 Conclusion SINUS RHYTHM WITH SINUS ARRHYTHMIA NORMAL ECG UNCONFIRMED REPORT Electronically signed by : Foster Garcia MD 05/25/2025 13:10:44
--- NOTE | 2025-05-24 08:57 | XR_ITS ---
FINAL REPORT CLINICAL HISTORY: SOB - heartburn at night COMPARISON: None FINDINGS: CHEST 2 VIEWS: No acute pulmonary density is evident. There is no evidence of effusion or other pleural disease. The mediastinum has a normal appearance. The cardiac silhouette is unremarkable. IMPRESSION: Unremarkable chest exam. Reviewed, Interpreted and Dictated by Christelle Jenkins MD Transcribed by Laxmi Verdugo Authenticated and [facility]
[2025-05-24 09:51] LABS: Hematocrit 47.6 % (42.0-52.0); Hemoglobin 15.4 g/dL (14.1-18.0); Immature Granulocytes % 1.1 %; Mean Corpuscular HGB Conc 32.4 g/dL (31.8-35.4); Mean Corpuscular Hemoglobin 27.5 pg (27.0-31.2); Mean Corpuscular Volume 84.8 fl (80-94); Nucleated Red Blood Cells % 0 %; Platelet Count 214 K/mm3 (142-424); Red Blood Count 5.61 M/mm3 (4.60-6.20); Red Cell Distribution Width-SD 41.0 fL; White Blood Count 6.5 K/mm3 (4.8-10.8)
[2025-05-24 10:13] LABS: Alanine Aminotransferase 40 U/L (12-78); Albumin Level 4.8 g/dl (3.5-5.0); Albumin/Globulin Ratio 1.8 (1.1-1.8); Alkaline Phosphatase 78 U/L (38-126); Anion Gap 12.4 mEq/L (5-15); Aspartate Amino Transferase 37 U/L (17-59); Bilirubin,Total 0.5 mg/dl (0.2-1.3); Blood Urea Nitrogen 20 mg/dl (9-20); Calcium 9.7 mg/dl (8.4-10.2); Carbon Dioxide 28 mmol/L (22.0-30.0); Chloride 100 mmol/L (98-107); Creatinine,Serum 1.10 mg/dl (0.66-1.25); Estimated Glomerular Filt Rate 69 ml/min (>60); GFR (African American) 84 ML/MIN (>60); Globulin 2.6 g/dL (1.3-3.2); Glucose 103 mg/dl (74-100); Potassium 4.4 mmoL/L (3.5-5.1); Sodium 136 mmol/L (136-145); Total Protein,Serum 7.4 g/dl (6.3-8.2)
[2025-05-24 10:22] LABS: NT Pro Brain Natriuretic Pep. < 20.0 pg/mL (0-125)
[2025-05-24 12:46] LABS: Hemoglobin A1C 5.7 % (4.0-6.0)
== END 2025-05-24 23:59 | disposition home or self-care (01) ==
LOC: LAB 08:29
PROVIDERS: PCP Nurse Practitioner; Visit Provider Nurse Practitioner
DX: I49.8 Other specified cardiac arrhythmias (principal); I25.10 Atherosclerotic heart disease of native coronary artery without angina pectoris; E11.9 Type 2 diabetes mellitus without complications; K21.9 Gastro-esophageal reflux disease without esophagitis
CPT/HCPCS: 36415; 71046; 80053; 83036; 83880; 85025; 93005

== ENCOUNTER 2025-07-04 09:57 | Outpatient (CLI) | payer BC, SELFPAY ==
[2025-07-04 14:46] LABS: Hematocrit 47.4 % (42.0-52.0); Hemoglobin 15.7 g/dL (14.1-18.0); Immature Granulocytes % 0.4 %; Mean Corpuscular HGB Conc 33.1 g/dL (31.8-35.4); Mean Corpuscular Hemoglobin 27.6 pg (27.0-31.2); Mean Corpuscular Volume 83.3 fl (80-94); Nucleated Red Blood Cells % 0 %; Platelet Count 219 K/mm3 (142-424); Red Blood Count 5.69 M/mm3 (4.60-6.20); Red Cell Distribution Width-SD 40.0 fL; White Blood Count 7.1 K/mm3 (4.8-10.8)
[2025-07-04 15:22] LABS: Albumin Level 5.1 g/dl (3.5-5.0); Chloride 108 mmol/L (98-107); Potassium 4.7 mmoL/L (3.5-5.1); Sodium 140 mmol/L (136-145)
[2025-07-04 15:24] LABS: Blood Urea Nitrogen 18 mg/dl (9-20); Creatinine,Serum 1.00 mg/dl (0.66-1.25); Estimated Glomerular Filt Rate 78 ml/min (>60); GFR (African American) 94 ML/MIN (>60)
[2025-07-04 15:25] LABS: Alanine Aminotransferase 42 U/L (12-78); Albumin/Globulin Ratio 1.8 (1.1-1.8); Alkaline Phosphatase 81 U/L (38-126); Anion Gap 15.7 mEq/L (5-15); Aspartate Amino Transferase 37 U/L (17-59); Bilirubin,Total 0.6 mg/dl (0.2-1.3); Calcium 10.2 mg/dl (8.4-10.2); Carbon Dioxide 21 mmol/L (22.0-30.0); Globulin 2.8 g/dL (1.3-3.2); Glucose 97 mg/dl (74-100); Total Protein,Serum 7.9 g/dl (6.3-8.2)
[2025-07-04 15:29] LABS: Hemoglobin A1C 5.6 % (4.0-6.0)
--- OUTSIDE RECORDS SUMMARY | 2025-07-07 09:59 | XMS_ITS | Encounter Summary ---
Author Organization [facility] Address [address] [place] [address] Care Team Providers Care Purchasing Administrative Assistant Name Role Phone Kimmie Baca NP Primary Care Provider [phone] Shadia Vasques RN Unavailable [phone] Reason for Visit * Reason Comments Medications Refill Encounter Details Date Type Department Care Team (Late st Contact Info) Description 01/02/2019 Refill [facility] Physicians - Primary Care, [place] [address] [place] [address] Jeri Barron NP Medications Refill Social History [...] Notes * Telephone Encounter - Divya Cm, [facility] - 01/03/2019 11:31 AM EDT Requested Prescriptions [...] documented as of this encounter Care Teams Purchasing Administrative Assistant Relationship Specialty Start Date End Date Kimmie Baca NP [address] [facility] [place] [address] PCP - General Nurse Practitioner, Family 10/13/18 03/19/19 Shadia Vasques, RN [address] [place], [place] [address] P 3 Armament/Ordnance Ima Technician 01/07/19 03/20/19 [facility]) Consulting Physician Optometry 02/22/19 documented as of this encounter
--- OUTSIDE RECORDS SUMMARY | 2025-07-07 09:59 | XMS_ITS | Encounter Summary ---
Author Organization [facility] Address [address] [place] [address] Care Team Providers Care Motion Picture Critic Name Role Phone Shan [place] MD Primary Care Provider [phone] Kimmie Baca NP Primary Care Provider [phone] Shadia Vasques RN Unavailable [phone] Reason for Visit * Reason Onset Date Comments No Show Appt Follow-up 04/26/2018 No show X 3 for education appt, lvm Encounter Details Date Type Department Care Team (Late st Contact Info) Description 04/26/2018 Telephone [facility] - [facility], [address] [place] [address] [place], [place] [id number] No Show Appt Follow-up (No show X [...] on filedocumented in this encounter Care Teams Motion Picture Critic Relationship Specialty Start Date End Date Shan [place] MD PCP - General Family Medicine 10/17/11 10/12/18 Kimmie Baca NP [address] [place] [address] PCP - General Nurse Practitioner, Family 10/13/18 03/19/19 Shadia Vasques, RN [address] [place] [address] Manager Crisis 01/07/19 03/20/19 [facility]) Consulting Physician Optometry 02/22/19 documented as of this encounter
--- OUTSIDE RECORDS SUMMARY | 2025-07-07 09:59 | XMS_ITS | Encounter Summary ---
Author Organization [facility] Address [address] [place] [address] Care Team Providers Care Dispatcher Radioactive Waste Disposal Name Role Phone Shan Carroll MD Primary Care Provider [phone] Source Comments This information has been disclosed [...] release of HIV test results or diagnoses. [id number] Health Encounter Details Date Type Department Care Team (Late st Contact Info) Description 05/16/2025 Orders Only MEDICAL [facility]ENCE BUILDING [address] [facility] [place] [address] Geoff Bell, BELLMAN CAPTAIN [address] [place], [place] [id number] Neoplasm of uncertain behavior of skin (Primary [...] [facility] - 05/11/2025 12:00 AM EDT CASE: [id number] PATIENT: NEFTALI ENAMORADO Clinical Impression: Angioma Site(s): L anterior vertex scalp CPT Code(s): 09548 X 1 Diagnosis: Angioma Microscopic Exam: The dermis reveals multiple dilated blood vessels. Gross Description: A specimen of skin was received measurin x 9 x 1 mm Final Diagnosis performed by SHALINI ALBERTS MD Electronically signed 05/16/2025 12:28:45 PM The Pathologist signing this report is located at [facility], [address] [place] [address], [address], , CLIA ID: [id number] us Geoff Bell BELLMAN CAPTAIN DERM PROCEDURE ORDERABLES Fi nal Result VAMSHIPATH documented in this encounter Visit Diagnoses Diagnosis Neoplasm of uncertain behavior of skin- Primary documented in this encounter Care Teams Dispatcher Radioactive Waste Disposal Relationship Specialty Start Date End Date Shan [place] MD [address] [place] [address] PCP - General Family Medicine 04/23/16 documented as of this encounter
--- OUTSIDE RECORDS SUMMARY | 2025-07-07 09:59 | XMS_ITS | Encounter Summary ---
Author Organization [facility] Address [address] [place] [address] Care Team Providers Care Numerical Control Router Operator Name Role Phone Shan Carroll MD Primary Care Provider [phone] Kimmie Baca NP Primary Care Provider [phone] Shadia Vasques RN Unavailable Reason for Visit * Reason Onset Date Comments No Show Appt Follow-up 03/19/2018 No show f or diabetes education appt. lvm Encounter Details Date Type Department Care Team (Late st Contact Info) Description 03/19/2018 Telephone [facility] - [facility], [address] [place] [address] Miladis Mario [address] [place], [place] [id number] No Show Appt Follow-up (No show for [...] on filedocumented in this encounter Care Teams Numerical Control Router Operator Relationship Specialty Start Date End Date Shan Carroll MD PCP - General Family Medicine 10/17/11 10/12/18 Kimmie Baca NP [address] [facility] [place] [address] PCP - General Nurse Practitioner, Family 10/13/18 03/19/19 Shadia Vasques, RN [address] [place] [address] Mechanist 01/07/19 03/20/19 [facility]) Consulting Physician Optometry 02/22/19 documented as of this encounter
--- OUTSIDE RECORDS SUMMARY | 2025-07-07 09:59 | XMS_ITS | Encounter Summary ---
Author Organization [facility] Address [address] [place] [address] Care Team Providers Care Cigarette Maker Name Role Phone Shan Carroll MD Primary Care Provider [phone] Kimmie Baca NP Primary Care Provider [phone] Shadia Vasques RN Unavailable [phone] Reason for Visit * Reason Onset Date Comments Scheduling 04/27/2018 Encounter Details Date Type Department Care Team (Late st Contact Info) Description 04/27/2018 Telephone [facility], [address] [place] [address] Gemini Alfred [address] [place] [address] Scheduling Social History Tobacco Use Types [...] on filedocumented in this encounter Care Teams Cigarette Maker Relationship Specialty Start Date End Date Shan Carroll MD PCP - General Family Medicine 10/17/11 10/12/18 Kimmie Baca NP [address] [place] [address] [place] [address] PCP - General Nurse Practitioner, Family 10/13/18 03/19/19 Shadia Vasques, RN [address] [place], [place] [address] Fund Director 01/07/19 03/20/19 [facility]) Consulting Physician Optometry 02/22/19 documented as of this encounter
--- OUTSIDE RECORDS SUMMARY | 2025-07-07 09:59 | XMS_ITS | Encounter Summary ---
Author Organization [facility] Address [address] [place] [address] Care Team Providers Care Metallurgical Laboratory Assistant Name Role Phone Shan Carroll MD Primary Care Provider [phone] Kimmie Baca NP Primary Care Provider [phone] Shadia Vasques RN Unavailable [phone] Reason for Visit * Reason Onset Date Comments No Show Appt Follow-up 04/09/2018 No show f or education appt. lvm to reschedule Encounter Details Date Type Department Care Team (Late st Contact Info) Description 04/09/2018 Telephone [facility], [address] [place] [address] Miladis Mario [address] [place] [id number] No Show Appt Follow-up (No show for [...] on filedocumented in this encounter Care Teams Metallurgical Laboratory Assistant Relationship Specialty Start Date End Date Shan Carroll MD PCP - General Family Medicine 10/17/11 10/12/18 Kimmie Baca NP [address] [place] [address] PCP - General Nurse Practitioner, Family 10/13/18 03/19/19 Shadia Vasques, RN [address] [place] [address] Tree Farmer 01/07/19 03/20/19 [facility]) Consulting Physician Optometry 02/22/19 documented as of this encounter
--- OUTSIDE RECORDS SUMMARY | 2025-07-07 09:59 | XMS_ITS | Encounter Summary ---
Author Organization [facility] Address [address] [place] [address] Care Team Providers Care Facility Supervisor Name Role Phone Unavailable Primary Care Provider Unavailabl e Reason for Visit * Reason Comments Medications Refill Encounter Details Date Type Department Care Team (Late st Contact Info) Description 08/17/2019 Refill [facility] Physicians - Primary Care, [place] [address] [place] [address] Kimmie Baca NP [address] [place] [address] Medications Refill Social History Tobacco Use Types [...] documented as of this encounter Care Teams Facility Supervisor Relationship Specialty Start Date End Date [facility]) Consulting Physician Optometry 02/22/19 documented as of this encounter
--- OUTSIDE RECORDS SUMMARY | 2025-07-07 09:59 | XMS_ITS | Clinical Summary ---
Author Organization [facility] Address [address] [place] [address] Care Team Providers Care Signal Worker Helper Name Role Phone Shan Carroll MD Primary Care Provider [phone] Allergies No known active allergies Medications METFORMIN [...] 04/14/2013 HEMOGLOBIN A1C Discontinued 02/17/2018 Care Teams Signal Worker Helper Relationship Specialty Start Date End Date Shan Carroll MD [address] [place] [address] PCP - General Family Medicine 05/28/18
--- OUTSIDE RECORDS SUMMARY | 2025-07-07 09:59 | XMS_ITS | Clinical Summary ---
Author Organization [facility] Address [address] [place] [address] Care Team Providers Care Drawbridge Tender Name Role Phone Unavailable Primary Care Provider Unavailabl e Allergies Active Allergy Reactions Criticality Noted Date Comments Aripiprazole Shortness Of Breath,Nausea Only Medications ALLERGY RELIEF, FEXOFENADINE, 180 mg tablet TAKE 1 TABLET BY MOUTH EVERY DAY 30 Tab 3 5 Active DYMISTA 137-50 mcg/spray [place], Non-AerosolIndic ations:Benign prostatic hyperplasia, unspecified whether lower [...] Carroll MD CHEMISTRY ORDERABLES Final Res ult [facility] [address] from Last 3 Months or Most Recently Relevant to Health Maintenance Insurance ANTH Care Teams Drawbridge Tender Relationship Specialty Start Date End Date [facility]) Consulting Physician Optometry 02/22/19
--- OUTSIDE RECORDS SUMMARY | 2025-07-07 09:59 | XMS_ITS | Encounter Summary ---
Author Organization [facility] Address [address] [place], [place] [address] Care Team Providers Care Wood Setter Name Role Phone Unavailable Primary Care Provider Unavailabl e Reason for Visit * Reason Comments Medications Refill Encounter Details Date Type Department Care Team (Late st Contact Info) Description 07/16/2019 Refill [facility] Physicians - Primary Care, [place] [address] [place] [address] Kimmie Baca NP [address] [place] [address] Medications Refill Social History Tobacco Use Types [...] documented as of this encounter Care Teams Wood Setter Relationship Specialty Start Date End Date [facility]) Consulting Physician Optometry 02/22/19 documented as of this encounter
--- OUTSIDE RECORDS SUMMARY | 2025-07-07 10:00 | XMS_ITS | Clinical Summary ---
Author Organization [facility] Address [address] [place] [address] Phone Care Team Providers Care Research Professor Of Biostatistics Name Role Phone Geovanni Ayon MD Primary Care Provider [phone] Allergies No known active allergies Medications fexofenadine (JUANA) 180 mg Oral Tablet TAKE 1 TABLET BY MOUTH EVERY DAY 5 Active finasteride (PROSCAR) 5 mg Oral Tablet Take 5 mg by mouth daily. Active Coenzyme Q10 100 mg Oral Capsule Take by mouth. Activ e fluticasone propionate (FLONASE) 50 mcg/actuation Nasl [place], Suspension by Nasal route daily. Active triamcinolone [...] ipratropium (ATROVENT) 21 mcg (0.03 %) Nasl [place], Non-AerosolIndi cations:Acute bacterial sinusitis 2 SPRAYS BY [...] 01/29/2023 11:04 PM EDT [facility] Anion Gap 14 7 - 16 mmol/L 01/29/2023 11:04 PM EDT [facility] Calcium 10.1 8.6 - 10.4 mg/dL 01/29/2023 11:04 PM EDT [facility] Glucose Lvl 93 74 - 100 mg/dL 01/29/2023 11:04 PM EDT [facility] BUN 19 6 - 20 mg/dL 01/29/2023 11:04 PM EDT [facility] Creatinine 1.21 0.67 - 1.30 mg/dL 01/29/2023 11:04 PM EDT [facility] Albumin 4.5 3.5 - 5.2 gm/dL 01/29/2023 11:04 PM EDT [facility] Total Protein 7.4 6.4 - 8.3 gm/dL 01/29/2023 11:04 PM EDT [facility] Bili Total 0.3 0.2 - 1.4 mg/dL 01/29/2023 11:04 PM EDT [facility] ALT 24 <=41 U/L 01/29/2023 11:04 PM EDT [facility] AST 22 <=40 U/L 01/29/2023 11:04 PM EDT [facility] Alk Phos 101 40 - 129 U/L 01/29/2023 11:04 PM EDT [facility] eGFR (CKD-EPIcr 2020) 72 >=60 mL/min/1.7 3 m2 01/29/2023 11:04 PM EDT [facility] Comment:Estimated GFR was ca lculated using the CKD-EPIcr (2020) equation refit without race. The equation is recommended by the National Kidney Foundation - [place] Society of Nephrology Task Force. Blood VENOUS BLOOD / Unknown Venipuncture / Unknown 01/29/2023 12:03 PM EDT 01/29/2023 12:03 PM EDT us Philomena Nieves DO CHEMISTRY ORDERABLES Final R esult [facility] , [address] [place] [id number] [facility] [address] [place] [address] * GMED COLONOSCOPY (07/11/2022 10:00 AM EST) 07/11/2022 10:0 0 AM EST Impressions [facility] - 07/11/2022 11:06 AM EST Polyp (5 mm) in the rectum. (Polypectomy). Plan: Colonoscopy in 5 years Follow up pathology results. High Fiber Diet. Soluble fiber is recommended for diarrhea and insoluble fiber is recommended for constipation. This section is an excerpt of the full report. us Aneudy Garvin III, MD GI PROCEDURE ORDERABLES Fi nal Result Performing Organization Address [facility] de Phone Number [address] [address] * (ABNORMAL) LIPID PANEL REFLEX (04/02/2022 10:19 AM EDT) Cholesterol 126 <200 mg/dL 04/02/2022 4:30 PM EDT [facility] Comment: < 200 Desirable 200 - 239 Borderline High >= 240 High Triglyceride 96 <150 mg/dL 04/02/2022 4:30 PM EDT [facility] Comment: < 150 Normal 150 - 199 Borderline High 200 - 499 High >= 500 Very High HDL 32(L) >=40 mg/dL 04/02/2022 4:30 PM EDT [facility] Comment: > 60 Optimal 40 - 60 Acceptable < 40 Low LDL Calculated 76 <100 mg/dL 04/02/2022 4:30 PM EDT [facility] Non-HDL-C Calculated 94 <=129 mg/dL 04/02/2022 4:30 PM EDT [facility] Comment: <130 Desirable 130-159 Above Desirable 160-189 Borderline High 190-219 High >= 220 Very High Fasting Specimen? Yes None 022 4:30 PM EDT [facility] Blood VENOUS BLOOD / Unknown Venipuncture / Unknown 04/02/2022 10:19 AM EDT 04/02/2022 10:19 AM EDT us Geovanni Ayon MD CHEMISTRY ORDERABLES Final Result Performing Organization Address [facility] Co de Phone Number [facility] [address] [facility] , [address] [place] [phone] [facility] [address] [place] [address] * MICROALBUMIN/CREATININE RATIO URINE (06/29/2019 8:53 AM EST) Urine Albumin 35.4 mg/L 06/29/2019 4:26 PM EST [facility] Urine Creatinine 224.8 mg/dL 06/29/2019 4:26 PM EST [facility] Ur Albumin/Creat Ratio 16 0 - 30 mg/g 06/29/2019 4:26 PM EST [facility] Urine STRUCTURE OF URINARY TRACT PROPER / Unknown 06/29/2019 8:53 AM EST 06/29/2019 8:53 AM EST us Geovanni Ayon MD URINE ORDERABLES Final Resu lt Performing Organization Address City/[facility] Co de Phone Number [facility] [address] [facility] , [place] [address] from Last 3 Months or Most Recently Relevant to Health Maintenance [place] [address] [place] [address] ANTHEM PPO ANTHFELA PPO Care Teams Research Professor Of Biostatistics Relationship Specialty Start Date End Date Geovanni Ayon MD [address] [place] [address] PCP - General Family Medicine 06/29/19
--- OUTSIDE RECORDS SUMMARY | 2025-07-07 10:00 | XMS_ITS | Encounter Summary ---
Author Organization [facility] Address [address] [place] [address] Care Team Providers Care Chain Maker Loom Control Name Role Phone Unavailable Primary Care Provider Unavailabl e Reason for Visit * Reason Comments Medications Refill Encounter Details Date Type Department Care Team (Late st Contact Info) Description 04/01/2019 Refill [facility] Physicians - Primary Care, [place] [address] [place] [address] Kimmie Baca NP [address] [place] [address] [place] [address] Medications Refill Social History Tobacco Use Types [...] documented as of this encounter Care Teams Chain Maker Loom Control Relationship Specialty Start Date End Date [facility]) Consulting Physician Optometry 02/22/19 documented as of this encounter
--- OUTSIDE RECORDS SUMMARY | 2025-07-07 10:00 | XMS_ITS | Encounter Summary ---
Author Organization [facility] Address [address] [place] [address] Care Team Providers Care Layout Operator Name Role Phone Kimmie Baca NP Primary Care Provider [phone] Shadia Vasques RN Unavailable [phone] Reason for Visit * Reason Comments Medications Refill Encounter Details Date Type Department Care Team (Late st Contact Info) Description 01/19/2019 Refill [facility] Physicians - Primary Care, [place] [address] [place] [address] Kimmie Baca NP [address] [facility] [place] [address] [place] [address] Medications Refill Social History Tobacco Use Types [...] documented as of this encounter Care Teams Layout Operator Relationship Specialty Start Date End Date Kimmie Baca NP [address] [place] [address] [place] [address] PCP - General Nurse Practitioner, Family 10/13/18 03/19/19 Shadia Vasques, RN [address] [place] [address] Director Reactor Projects 01/07/19 03/20/19 [facility]) Consulting Physician Optometry 02/22/19 documented as of this encounter
--- OUTSIDE RECORDS SUMMARY | 2025-07-07 10:00 | XMS_ITS | Encounter Summary ---
Author Organization [facility] Address [address] [place] [address] Care Team Providers Care Barbering Instructor Name Role Phone Kimmie Baca NP Primary Care Provider Shadia Vasques RN Unavailable [phone] Reason for Visit * Reason Comments Medications Refill Encounter Details Date Type Department Care Team (Late st Contact Info) Description 01/18/2019 Refill [facility] - Primary Care, [place] [address] [place] [address] Jeri Barron NP Medications Refill Social History [...] documented as of this encounter Care Teams Barbering Instructor Relationship Specialty Start Date End Date Kimmie Baca NP [address] [place] [address] [place] [address] PCP - General Nurse Practitioner, Family 10/13/18 03/19/19 Shadia Vasques, RN [address] [place], [place] [address] Bumper Machine Operator 01/07/19 03/20/19 [facility]) Consulting Physician Optometry 02/22/19 documented as of this encounter
--- OUTSIDE RECORDS SUMMARY | 2025-07-07 10:00 | XMS_ITS | Encounter Summary ---
Author Organization [facility] Address [address] [place] [address] Care Team Providers Care Hot Mill Shearer Name Role Phone Unavailable Primary Care Provider Unavailabl e Reason for Visit * Reason Onset Date Comments Medications Refill Medications Refill 06/01/2019 Encounter Details Date Type Department Care Team (Late st Contact Info) Description 05/23/2019 Refill [facility] Physicians - Primary Care, [place] [address] [place] [phone] Jeri Barron NP Medications Refill; Medications Refill [...] encounter Miscellaneous Notes * Telephone Encounter - eJri Barron NP - 06/01/2019 3:07 PM EST [...] documented as of this encounter Care Teams Hot Mill Shearer Relationship Specialty Start Date End Date [facility]) Consulting Physician Optometry 02/22/19 documented as of this encounter
--- OUTSIDE RECORDS SUMMARY | 2025-07-07 10:00 | XMS_ITS | Clinical Summary ---
Author Organization [facility] Address [address] [place] [address] Care Team Providers Care Dumper Operator Name Role Phone Shan Carroll MD Primary Care Provider [phone] Source Comments This information has been disclosed [...] therelease of HIV test results or diagnoses. [id number] Allergies No known active allergies Medications [...] Department Care Team Description 05/16/2025 Orders Only [facility] [address] [place] [address] Geoff Bell NP Neoplasm of uncertain behavior [...] [facility] - 05/11/2025 12:00 AM EDT CASE: [id number] PATIENT: NEFTALI ENAMORADO Clinical Impression: Angioma Site(s): L anterior vertex scalp CPT Code(s): 13054 X 1 Diagnosis: Angioma Microscopic Exam: The dermis reveals multiple dilated blood vessels. Gross Description: A specimen of skin was received measurin x 9 x 1 mm Final Diagnosis performed by SHALINI ALBERTS MD Electronically signed 05/16/2025 12:28:45 PM The Pathologist signing this report is located at [facility], [address] [place], [address], , CLIA ID: [id number] Geoff Bell NP DERM PROCEDURE ORDERABLES Fi nal Result [facility] from Last 3 Months Insurance BLUE OTHER Care Teams Dumper Operator Relationship Specialty Start Date End Date [place] [address] PCP - General Family Medicine 04/23/16
== END 2025-07-04 23:59 | disposition home or self-care (01) ==
LOC: LAB.DROPOF 07-07 09:58
PROVIDERS: PCP Nurse Practitioner; Visit Provider Nurse Practitioner
DX: E11.9 Type 2 diabetes mellitus without complications (principal)
CPT/HCPCS: 80053; 83036; 85025